=== PATIENT | male | born 1945 | race Caucasian/White ===

== ENCOUNTER → 2016-12-01 | Outpatient (REF) | payer MEDICARE, OTHER ==
[2016-12-01 13:10] LABS: MEAN CORPUSCULAR HGB CONC 33.7 g/dl (32.0-36.5); RED CELL DISTRIBUTION WIDTH 13.6 % (11.5-14.5)
[2016-12-01 13:48] LABS: VITAMIN B12 LEVEL 851 PG/ML (247-911)
[2016-12-01 13:49] LABS: ALBUMIN 3.6 GM/DL (3.2-5.2); ALKALINE PHOSPHATASE 82 U/L (45-117); ALT/SGPT 38 U/L (12-78); ANION GAP 8 MEQ/L (8-16); AST/SGOT 34 U/L (15-37); BILIRUBIN,TOTAL 0.5 MG/DL (0.2-1.0); BLOOD UREA NITROGEN 18 MG/DL (7-18); CALCIUM LEVEL 9.3 MG/DL (8.8-10.2); CARBON DIOXIDE LEVEL 28 MEQ/L (21-32); CHLORIDE LEVEL 105 MEQ/L (98-107); CREATININE FOR GFR 1.21 MG/DL (0.70-1.30); FREE T4 1.04 NG/DL (0.76-1.46); GLOMERULAR FILTRATION RATE > 60.0 (>42); GLUCOSE, FASTING 85 MG/DL (83-110); POTASSIUM SERUM 4.4 MEQ/L (3.5-5.1); SODIUM LEVEL 141 MEQ/L (136-145); TOTAL PROTEIN 7.6 GM/DL (6.4-8.2)
[2016-12-01 14:20] LABS: BASOPHILS 1 % (0-4); EOSINOPHILS 7 % (0-5)
[2016-12-02 10:50] LABS: ALBUMIN 4.07 GM/DL (3.29-5.55); ALBUMIN % 53.6 % (55.8-66.1); GAMMA GLOBULIN % 20.7 % (11.1-18.8)
[2016-12-02 11:00] LABS: MAGNESIUM LEVEL 2.2 MG/DL (1.8-2.4)
[2016-12-02 11:31] LABS: PRETREATED FOLATE FOR RBCFOL 11.8 NG/ML
[2016-12-02 11:36] LABS: RETIC HEMOGLOBIN CONTENT CHr 32.3 PG (24-36); RETICULOCYTE % ADVIA2120 2.1 % (0.5-1.5)
== END ==
LOC: M SFHCPLAZ 10:51
PROVIDERS: ATTEND Family Medicine
DX: E53.8 Deficiency of other specified B group vitamins (principal); N18.3 Chronic kidney disease, stage 3 (moderate); E03.9 Hypothyroidism, unspecified; Z12.5 Encounter for screening for malignant neoplasm of prostate; E55.9 Vitamin D deficiency, unspecified; J44.9 Chronic obstructive pulmonary disease, unspecified; Z79.82 Long term (current) use of aspirin; Z79.899 Other long term (current) drug therapy
CPT/HCPCS: 36415; 80053; 82306; 82607; 82728; 82747; 83519; 83550; 83735; 83970; 84165; 84439; 84443; 85007; 85027; 85046; 86140; G0103; G0463

== ENCOUNTER → 2016-12-05 | Outpatient (CLI) | payer MEDICARE, OTHER ==
--- NOTE | 2016-12-05 12:37 | REP ---
TWO-VIEW CHEST: REASON: Fatigue. COMPARISON: Multiple, the latest 04/15/2010. FINDINGS: The superior mediastinal structures are midline. The cardiac silhouette is unremarkable in size, shape, and position. The diaphragmatic surfaces of the lungs are regular, and the costophrenic angles are clear. The pulmonary ervin are clear. The imaged osseous structures are intact. IMPRESSION: There is no acute cardiopulmonary disease. No change from the prior exam. Signed by Temo Henderson DO 12/05/2016 02:46 P
== END ==
LOC: M WUC 11:04
PROVIDERS: ATTEND Family Medicine
DX: R53.83 Other fatigue (principal)

== ENCOUNTER → 2016-12-16 | Outpatient (CLI) | payer MEDICARE, BC, OTHER ==
--- NOTE | 2016-12-16 15:08 | REP ---
Whole body radionuclide bone scan: History: Hypercalcemia. No comparison bone scan. Technique: 20.7 mCi of technetium 99m MDP is injected and standard whole body bone scan imaging is acquired. Scintigraphic findings: There is a normal distribution of skeletal tracer with uptake in bilateral kidneys and in the urinary bladder. There is arthritic uptake involving both acromioclavicular joints, both knees, right greater than left, and the right first MTP joint in the foot. There are mild degenerative uptake changes in the cervical spine. There is no evidence to suggest skeletal metastatic disease. Impression: Mild arthritic pattern as above. No evidence of bony metastatic disease or destructive lesion. Signed by Mika Ragland MD 12/16/2016 05:08 P
== END ==
LOC: M RAD 09:36
PROVIDERS: ATTEND Family Medicine
DX: E83.52 Hypercalcemia (principal)
CPT/HCPCS: 78306; A9503

== ENCOUNTER → 2017-01-02 | Outpatient (REF) | payer MEDICARE, OTHER, BC ==
[~2017-01-02] MED LIST: B121000T PO; COMBAER6 INH; FERR325T3 PO; MULT1CHW39 PO; OMEP40CA2 PO
[2017-01-02 10:39] LABS: MEAN CORPUSCULAR HEMOGLOBIN 31.6 pg (27.0-33.0); MEAN CORPUSCULAR HGB CONC 33.6 g/dl (32.0-36.5); MEAN CORPUSCULAR VOLUME 93.8 fl (80.0-96.0); RED CELL DISTRIBUTION WIDTH 13.9 % (11.5-14.5); WHITE BLOOD COUNT 6.3 K/mm3 (4.0-10.0)
[2017-01-02 11:13] LABS: ALBUMIN 3.8 GM/DL (3.2-5.2); ALBUMIN/GLOBULIN RATIO 0.93 (1.00-1.93); BILIRUBIN,TOTAL 0.5 MG/DL (0.2-1.0); CALCIUM LEVEL 9.5 MG/DL (8.8-10.2); CREATININE FOR GFR 1.38 MG/DL (0.70-1.30); GLOMERULAR FILTRATION RATE 54.1 (>42); PERCENT SATURATION 38.6 % (19.7-37.4); POTASSIUM SERUM 4.4 MEQ/L (3.5-5.1); TOTAL PROTEIN 7.9 GM/DL (6.4-8.2)
[2017-01-02 12:07] LABS: EOSINOPHILS 8 % (0-5)
[2017-01-07 00:10] LABS: PTH RELATED PEPTIDE 6.9 pmol/L (.)
== END ==
LOC: M SFHCPLAZ 09:42
PROVIDERS: ATTEND Family Medicine
DX: E21.5 Disorder of parathyroid gland, unspecified (principal); E55.9 Vitamin D deficiency, unspecified; D50.9 Iron deficiency anemia, unspecified; I48.92 Unspecified atrial flutter
CPT/HCPCS: 36415; 80053; 82728; 83519; 83550; 83615; 83625; 85007; 85027; G0463

== ENCOUNTER → 2017-01-06 | Outpatient (CLI) | payer MEDICARE, BC, OTHER ==
[~2017-01-06] MED LIST changes: -B121000T PO; -COMBAER6 INH; -FERR325T3 PO; +ISOVUE-370 76% 100ML VIAL (Q9967) As Ordered ONE; -MULT1CHW39 PO; -OMEP40CA2 PO
--- NOTE | 2017-01-06 16:12 | REP ---
CT NECK WITH CONTRAST: HISTORY: Hypercalcemia. CONTRAST: Isovue-370 100 mL Calcifications are present in the tonsils. This is secondary to previous inflammatory disease. The naso- monica- and hypopharynx, larynx and subglottic trachea otherwise normal in appearance. The salivary and thyroid glands are normal. Small lymph nodes less than 1 cm in size are present in the internal jugular chains, posterior triangles, submandibular and submental areas. Atherosclerotic calcification is present at the right carotid bifurcation. Degenerative change is present in the cervical spine. Scarring is present in the lung apices. Minimal mucosal thickening is present in the ethmoid and right maxillary sinuses. IMPRESSION: There is no neck mass or adenopathy. Signed by Emmanuel London MD 01/06/2017 04:28 P
--- NOTE | 2017-01-06 16:38 | REP ---
CT of the chest with IV contrast: Comparison is the PA and lateral plain film study dated 12/05/2016. The thyroid is incompletely included in the scan. Consider thyroid ultrasound for evaluation of the thyroid. There is a 6 mm nodule posteroinferiorly in the left upper lobe. There are no acute infiltrates or effusions. There is minor atelectasis inferiorly in the right right middle lobe and inferiorly in the lingula. There is no mediastinal or hilar adenopathy. There is no axillary adenopathy. The thoracic aorta is unremarkable. Cardiac size is normal. In the upper abdomen there is hepato steatosis. The gallbladder, pancreas and spleen are unremarkable. There is no adrenal mass. Impression: There is a 6 mm nodule in the left upper lobe as described. There is no adenopathy. This is a category three lung nodule. The probability of malignancy is 1-2%. Recommendation is for a 6-month follow-up CT. Signed by Tony Alvarado MD 01/06/2017 04:30 P
== END ==
LOC: M RAD 13:38
PROVIDERS: ATTEND Family Medicine
DX: E83.52 Hypercalcemia (principal); R91.8 Other nonspecific abnormal finding of lung field
CPT/HCPCS: 70491; 71260; Q9967

== ENCOUNTER → 2017-02-11 | Outpatient (CLI) | payer MEDICARE, BC, OTHER ==
[~2017-02-11] MED LIST changes: +B121000T PO; +COMBAER6 INH; +FERR325T3 PO; -ISOVUE-370 76% 100ML VIAL (Q9967) As Ordered ONE; +MULT1CHW39 PO; +OMEP40CA2 PO
[2017-02-11 20:41] LABS: ALBUMIN 3.8 GM/DL (3.2-5.2); ALBUMIN/GLOBULIN RATIO 0.97 (1.00-1.93); BILIRUBIN,TOTAL 0.5 MG/DL (0.2-1.0); CALCIUM LEVEL 9.1 MG/DL (8.8-10.2); CREATININE FOR GFR 1.42 MG/DL (0.70-1.30); GLOMERULAR FILTRATION RATE 52.3 (>42); POTASSIUM SERUM 4.3 MEQ/L (3.5-5.1); TOTAL PROTEIN 7.7 GM/DL (6.4-8.2)
[2017-02-11 20:56] LABS: MEAN CORPUSCULAR HEMOGLOBIN 33.2 pg (27.0-33.0); MEAN CORPUSCULAR HGB CONC 34.6 g/dl (32.0-36.5); MEAN CORPUSCULAR VOLUME 95.9 fl (80.0-96.0); RED CELL DISTRIBUTION WIDTH 13.8 % (11.5-14.5); WHITE BLOOD COUNT 8.4 K/mm3 (4.0-10.0)
[2017-02-11 21:31] LABS: BASOPHILS 2 % (0-4); EOSINOPHILS 7 % (0-5)
[2017-02-11 21:32] LABS: PLATELET CLUMPS SMALL AMT
[2017-02-15 00:07] LABS: Lyme Disease IgG Ab 18 kDa Ban Absent (.); Lyme Disease IgG Ab 23 kDa Ban Absent (.); Lyme Disease IgG Ab 28 kDa Ban Absent (.); Lyme Disease IgG Ab 30 kDa Ban Absent (.); Lyme Disease IgG Ab 39 kDa Ban Present (.); Lyme Disease IgG Ab 41 kDa Ban Absent (.); Lyme Disease IgG Ab 45 kDa Ban Present (.); Lyme Disease IgG Ab 58 kDa Ban Absent (.); Lyme Disease IgG Ab 66 kDa Ban Absent (.); Lyme Disease IgG Ab 93 kDa Ban Absent (.); Lyme Disease IgG West Blot Int Negative (.); Lyme Disease IgG/IgM Antibodie 1.26 ISR (0.00-0.90); Lyme Disease IgM Ab 23 kDa Ban Present (.); Lyme Disease IgM Ab 39 kDa Ban Absent (.); Lyme Disease IgM Ab 41 kDa Ban Absent (.); Lyme Disease IgM Ab Quantitati 1.35 index (0.00-0.79); Lyme Disease IgM West Blot Int Negative (.)
== END ==
LOC: M WUC 11:16
PROVIDERS: ATTEND Physician Assistant
DX: R21 Rash and other nonspecific skin eruption (principal)

== ENCOUNTER → 2017-02-17 | Outpatient (REF) | payer MEDICARE, BC, OTHER ==
[2017-02-20 00:08] LABS: BABESIOSIS LEVEL IGG <1:10 (Neg:<1:10); BABESIOSIS LEVEL IGM <1:10 (Neg:<1:10)
== END ==
LOC: M SFHCPLAZ 08:58
PROVIDERS: ATTEND Family Medicine
DX: A69.20 Lyme disease, unspecified (principal); D50.9 Iron deficiency anemia, unspecified
CPT/HCPCS: 36415; 86609; 86880; 87798; G0463

== ENCOUNTER 2017-03-18 10:34 | Outpatient (CLI) | payer MEDICARE, BC, OTHER ==
[~2017-03-18] VITALS: Ht 180.3 cm; Wt 90.7 kg
[2017-03-18] MEDS ORDERED: NS 1,000 ML IV ONE (11:00)
[2017-03-18] MEDS ORDERED: PROPOFOL 200 MG/20 ML VIAL As Ordered ONE (12:09)
[2017-03-18] MEDS ORDERED: LIDOCAINE 2% INJ 100 MG/5 ML SDV (FOR ANES.) As Ordered ONE (12:09)
--- NOTE | 2017-03-18 12:26 | ROOR ---
Patient Name: Valentin Jack Procedure Date: 03/18/2017 11:47 AM Date of : 1945 Age: 71 Room: [facility], [facility]IN [facility] Gender: Male Note Status: Finalized Procedure: Total Colonoscopy to Cecum + Cold Snare Polypectomy + Hemoclips Indications: High risk colon cancer surveillance: Personal history of colonic polyps, Last colonoscopy: 2008 Providers: Gregorio Costa MD Referring MD: Ney Medina MD Requesting Provider: Medicines: Monitored Anesthesia Care Complications: No immediate complications. Procedure: Pre-Anesthesia Assessment: - The heart rate, respiratory rate, oxygen saturations, blood pressure, adequacy of pulmonary ventilation, and response to care were monitored throughout the procedure. The Colonoscope was introduced through the anus and advanced to the cecum, identified by appendiceal orifice and ileocecal valve. The colonoscopy was performed without difficulty. The patient tolerated the procedure well. The quality of the bowel preparation was excellent. Findings: The perianal and digital rectal examinations were normal. Non-bleeding internal hemorrhoids were found during retroflexion. The hemorrhoids were small and Grade I (internal hemorrhoids that do not prolapse). Multiple small and large-mouthed diverticula were found in the recto-sigmoid colon, sigmoid colon and descending colon. A medium polyp was found in the transverse colon. The polyp was sessile. The polyp was removed with a cold snare. Resection and retrieval were complete. To prevent bleeding after the polypectomy, one hemostatic clip was successfully placed (MR conditional). There was no bleeding at the end of the procedure. A medium polyp was found at 50 cm proximal to the anus. The polyp was semi-pedunculated. The polyp was removed with a cold snare. Resection and retrieval were complete. To prevent bleeding after the polypectomy, three hemostatic clips were successfully placed (MR conditional). There was no bleeding at the end of the procedure. The exam was otherwise without abnormality on direct and retroflexion views. Impression: - Non-bleeding internal hemorrhoids. - Diverticulosis in the recto-sigmoid colon, in the sigmoid colon and in the descending colon. - One medium polyp in the transverse colon, removed with a cold snare. Resected and retrieved. Clip (MR conditional) was placed. - One medium polyp at 50 cm proximal to the anus, removed with a cold snare. Resected and retrieved. Clips (MR conditional) were placed. - The examination was otherwise normal on direct and retroflexion views. - The exam was otherwise normal to the cecum. Recommendation: - Patient has a contact number available for emergencies. The signs and symptoms of potential delayed complications were discussed with the patient. Return to normal activities tomorrow. Written discharge instructions were provided to the patient. - High fiber diet. - Discharge patient to home. - Continue present medications. - Await pathology results. - Telephone GI clinic for pathology results in 1 week. - Check Portal Online for Path Results.([email or web address]) - Repeat colonoscopy for surveillance based on pathology results. - Return to referring physician. - The findings and recommendations were discussed with the patient's family. Gregorio Costa MD Gregorio Costa MD 03/18/2017 12:26:46 PM This report has been signed electronically. Number of Addenda: 0 Note Initiated On: 03/18/2017 11:47 AM Estimated Blood Loss: Estimated blood loss: none.
[2017-03-18 12:55] VITALS: BP 109/56
== END 2017-03-18 13:30 | disposition home or self-care (01) ==
LOC: M OPP 10:34
PROVIDERS: ATTEND Internal Medicine Gastroenterology
DX: Z12.11 Encounter for screening for malignant neoplasm of colon (principal); D12.3 Benign neoplasm of transverse colon; D12.5 Benign neoplasm of sigmoid colon; K64.0 First degree hemorrhoids; K57.30 Diverticulosis of large intestine without perforation or abscess without bleeding; Z86.010 Personal history of colon polyps; I48.91 Unspecified atrial fibrillation; M19.90 Unspecified osteoarthritis, unspecified site; Z86.79 Personal history of other diseases of the circulatory system; J45.909 Unspecified asthma, uncomplicated; G47.8 Other sleep disorders; G47.30 Sleep apnea, unspecified; R06.83 Snoring; Z87.891 Personal history of nicotine dependence; Z79.899 Other long term (current) drug therapy; Z88.8 Allergy status to other drugs, medicaments and biological substances; Z88.5 Allergy status to narcotic agent; Z88.0 Allergy status to penicillin; Z88.1 Allergy status to other antibiotic agents; Z80.8 Family history of malignant neoplasm of other organs or systems

== ENCOUNTER → 2017-04-09 | Outpatient (REF) | payer MEDICARE, OTHER ==
[2017-04-09 13:33] LABS: ALBUMIN 3.8 GM/DL (3.2-5.2); ALBUMIN/GLOBULIN RATIO 0.97 (1.00-1.93); BILIRUBIN,TOTAL 0.4 MG/DL (0.2-1.0); CALCIUM LEVEL 9.8 MG/DL (8.8-10.2); CREATININE FOR GFR 1.3 MG/DL (0.70-1.30); FREE T4 0.99 NG/DL (0.76-1.46); GLOMERULAR FILTRATION RATE 57.9 (>42); TOTAL PROTEIN 7.7 GM/DL (6.4-8.2)
[2017-04-09 13:51] LABS: BASO % 0.6 % (0.0-1.0); EOS # 0.5 K/mm3 (0.0-0.50); LARGE UNSTAINED CELL # 0.3 K/mm3 (0.0-0.4); LARGE UNSTAINED CELL % 3.9 % (0.0-4.0); LYMPH # 1.9 K/mm3 (1.5-4.5); LYMPH % 28.2 % (24.0-44.0); MEAN CORPUSCULAR HEMOGLOBIN 32.8 pg (27.0-33.0); MEAN CORPUSCULAR HGB CONC 34.6 g/dl (32.0-36.5); MEAN CORPUSCULAR VOLUME 94.8 fl (80.0-96.0); MONO # 0.5 K/mm3 (0.0-0.8); MONO % 7.1 % (0.0-5.0); NEUTROPHILS # 3.6 K/mm3 (1.8-7.7); NEUTROPHILS % 53.2 % (36.0-66.0); PLATELET COUNT, AUTOMATED 213 k/mm3 (150-450); RED CELL DISTRIBUTION WIDTH 13.4 % (11.5-14.5); WHITE BLOOD COUNT 6.7 K/mm3 (4.0-10.0)
== END ==
LOC: M SFHCPLAZ 09:24
PROVIDERS: ATTEND Family Medicine
DX: N18.3 Chronic kidney disease, stage 3 (moderate) (principal); E03.9 Hypothyroidism, unspecified; E55.9 Vitamin D deficiency, unspecified; Z23 Encounter for immunization
CPT/HCPCS: 80053; 82306; 83519; 83970; 84439; 84443; 85025; 90662; G0008

== ENCOUNTER → 2017-12-30 | Outpatient (REF) | payer MEDICARE, OTHER ==
[2017-12-30 12:00] LABS: BASO % 0.4 % (0.0-1.0); EOS # 0.4 10^3/uL (0.0-0.50); EOS % 5.8 % (0.0-3.0); HEMOGLOBIN 14.2 g/dl (13.5-17.5); IMMATURE GRANULOCYTE % 0.4 % (0-3.0); LYMPH # 1.9 10^3/uL (1.5-4.5); LYMPH % 26.2 % (24.0-44.0); MEAN CORPUSCULAR HEMOGLOBIN 32.9 pg (27.0-33.0); MEAN CORPUSCULAR HGB CONC 33.8 g/dl (32.0-36.5); MEAN CORPUSCULAR VOLUME 97.4 fl (80.0-96.0); MONO # 0.8 10^3/uL (0.0-0.8); MONO % 10.4 % (0.0-5.0); NEUTROPHILS # 4.2 10^3/uL (1.8-7.7); NEUTROPHILS % 56.8 % (36.0-66.0); RED BLOOD COUNT 4.31 10^6/uL (4.30-6.10); RED CELL DISTRIBUTION WIDTH 13.1 % (11.5-14.5); RETIC HEMOGLOBIN EQUIVALENT 38.3 pg (24-36); RETICULOCYTE # 62.5 10^9/L (17-77); RETICULOCYTE % 1.5 % (0.5-1.5); WHITE BLOOD COUNT 7.4 10^3/uL (4.0-10.0)
[2017-12-30 12:10] LABS: PLATELET COUNT, AUTOMATED 148 10^3/uL (150-450); POS COUNT POS FLAG
[2017-12-30 12:51] LABS: PTH INTACT 35.2 PG/ML (18.5-88.0); TOTAL 25(OH) VITAMIN D 30.6 NG/ML (30.0-100.0)
[2017-12-30 12:52] LABS: VITAMIN B12 LEVEL 633 PG/ML (247-911)
[2017-12-30 12:53] LABS: ALBUMIN 3.9 GM/DL (3.2-5.2); ALBUMIN/GLOBULIN RATIO 0.95 (1.00-1.93); ALKALINE PHOSPHATASE 109 U/L (45-117); ALT/SGPT 41 U/L (12-78); ANION GAP 8 MEQ/L (8-16); AST/SGOT 32 U/L (7-37); BILIRUBIN,TOTAL 0.5 MG/DL (0.2-1.0); BLOOD UREA NITROGEN 19 MG/DL (7-18); CALCIUM LEVEL 9.4 MG/DL (8.8-10.2); CARBON DIOXIDE LEVEL 26 MEQ/L (21-32); CHLORIDE LEVEL 109 MEQ/L (98-107); CREATININE FOR GFR 1.42 MG/DL (0.70-1.30); FREE T4 1.05 NG/DL (0.76-1.46); GLOMERULAR FILTRATION RATE 52.3 (>42); GLUCOSE, FASTING 88 MG/DL (70-100); POTASSIUM SERUM 4.6 MEQ/L (3.5-5.1); PSA SCREENING 0.16 NG/ML (< 4.0); SODIUM LEVEL 143 MEQ/L (136-145)
[2018-01-01 14:16] LABS: VITAMIN D 1,25 DIHYDROXY 38.7 pg/mL (19.9-79.3)
== END ==
LOC: M SFHCPLAZ 10:05
DX: D50.9 Iron deficiency anemia, unspecified (principal); Z12.5 Encounter for screening for malignant neoplasm of prostate; N18.3 Chronic kidney disease, stage 3 (moderate); E03.9 Hypothyroidism, unspecified; E55.9 Vitamin D deficiency, unspecified; E21.5 Disorder of parathyroid gland, unspecified
CPT/HCPCS: 84443

== ENCOUNTER 2017-12-31 16:36 | Emergency (ER) | payer MEDICARE, BC, OTHER ==
[2017-12-31] MEDS: IPRATROPIUM 0.5MG/ALBUTEROL 2.5MG INH SOL UD 3ML (DUONEB)(J7620) NEB ×2 (16:58→19:01)
[2017-12-31] MEDS: EPINEPHrine INJ 1 MG/ML 1ML AMP IM (17:03)
[2017-12-31] MEDS: methylPREDNISolone INJ 125 MG/2 ML VIAL (J2930) IV (17:04)
[2017-12-31] MEDS: FAMOTIDINE INJ 20MG/2ML VIAL (S0028) IVP (17:04)
[2017-12-31] MEDS: diphenhydrAMINE INJ 50MG/ML VIAL (J1200) IV (17:04)
[2017-12-31 17:19] LABS: ABG BASE EXCESS -2.4 (-2.0-2.0); ABG HCO3 24.3 MEQ/L (22.0-26.0); ABG O2 SATURATION 99.2 % (95.0-99.0); ABG PARTIAL PRESSURE O2 173.2 mmHg (75.0-100.0); ABG STANDARD HCO3 22.5 MEQ/L (22.0-26.0); ABG TOTAL CO2 25.8 MEQ/L (23.0-31.0); ABG pH (ARTERIAL) 7.313 UNITS (7.350-7.450)
[2017-12-31 17:22] LABS: BASO % 0.5 % (0.0-1.0); EOS # 0.5 10^3/uL (0.0-0.50); EOS % 5.7 % (0.0-3.0); HEMATOCRIT 42.8 % (42.0-52.0); HEMOGLOBIN 14.5 g/dl (13.5-17.5); IMMATURE GRANULOCYTE % 0.5 % (0-3.0); LYMPH # 3.5 10^3/uL (1.5-4.5); LYMPH % 39.7 % (24.0-44.0); MEAN CORPUSCULAR HEMOGLOBIN 32.9 pg (27.0-33.0); MEAN CORPUSCULAR HGB CONC 33.9 g/dl (32.0-36.5); MEAN CORPUSCULAR VOLUME 97.1 fl (80.0-96.0); MONO # 0.7 10^3/uL (0.0-0.8); MONO % 8.2 % (0.0-5.0); NEUTROPHILS % 45.4 % (36.0-66.0); PLATELET COUNT, AUTOMATED 198 10^3/uL (150-450); RED BLOOD COUNT 4.41 10^6/uL (4.30-6.10); RED CELL DISTRIBUTION WIDTH 13.1 % (11.5-14.5); WHITE BLOOD COUNT 8.7 10^3/uL (4.0-10.0)
[2017-12-31 17:38] LABS: INR 0.96; PROTHROMBIN TIME 12.9 SECONDS (12.4-14.5)
[2017-12-31 17:39] LABS: PARTIAL THROMBOPLASTIN TIME 35.4 SECONDS (26.8-37.9)
[2017-12-31 17:52] LABS: ALBUMIN 3.8 GM/DL (3.2-5.2); ALBUMIN/GLOBULIN RATIO 0.81 (1.00-1.93); ALKALINE PHOSPHATASE 117 U/L (45-117); ALT/SGPT 52 U/L (12-78); ANION GAP 6 MEQ/L (8-16); AST/SGOT 42 U/L (7-37); BILIRUBIN,DIRECT 0.1 MG/DL (0.0-0.2); BILIRUBIN,TOTAL 0.4 MG/DL (0.2-1.0); BLOOD UREA NITROGEN 15 MG/DL (7-18); CALCIUM LEVEL 8.9 MG/DL (8.8-10.2); CARBON DIOXIDE LEVEL 27 MEQ/L (21-32); CHLORIDE LEVEL 109 MEQ/L (98-107); CPK CREATINE PHOSPHOKINASE 220 U/L (39-308); CREATININE FOR GFR 1.43 MG/DL (0.70-1.30); FREE T4 1.03 NG/DL (0.76-1.46); GLOMERULAR FILTRATION RATE 51.8 (>42); GLUCOSE, FASTING 97 MG/DL (70-100); POTASSIUM SERUM 3.9 MEQ/L (3.5-5.1); SODIUM LEVEL 142 MEQ/L (136-145); TOTAL PROTEIN 8.5 GM/DL (6.4-8.2)
[2017-12-31 17:53] LABS: CK-MB VALUE MASS 3.6 NG/ML (<3.6); MB/CK RELATIVE INDEX 1.63 (< OR =4); TROPONIN I < 0.02 NG/ML (< 0.10)
[2017-12-31 17:54] LABS: NT-PRO BNP 234 PG/ML (<125)
== END 2017-12-31 20:50 | disposition home or self-care (01) ==
LOC: M ED 16:36
DX: T50.8X5A Adverse effect of diagnostic agents, initial encounter (principal); J98.01 Acute bronchospasm; Y92.9 Unspecified place or not applicable; Y93.9 Activity, unspecified; E21.5 Disorder of parathyroid gland, unspecified; R91.1 Solitary pulmonary nodule; I48.92 Unspecified atrial flutter; J45.909 Unspecified asthma, uncomplicated; J44.9 Chronic obstructive pulmonary disease, unspecified; E78.5 Hyperlipidemia, unspecified; G47.30 Sleep apnea, unspecified; K21.9 Gastro-esophageal reflux disease without esophagitis; M19.90 Unspecified osteoarthritis, unspecified site; N18.3 Chronic kidney disease, stage 3 (moderate); G62.9 Polyneuropathy, unspecified; Z87.891 Personal history of nicotine dependence; Z79.899 Other long term (current) drug therapy; Z91.041 Radiographic dye allergy status
CPT/HCPCS: J1200

== ENCOUNTER → 2017-12-31 | Outpatient (CLI) | payer MEDICARE, BC, OTHER ==
[~2017-12-31] MED LIST changes: -B121000T PO; -COMBAER6 INH; -FERR325T3 PO; +ISOVUE-370 76% 100ML VIAL (Q9967) As Ordered; -MULT1CHW39 PO; -OMEP40CA2 PO
== END ==
LOC: M RAD 16:03
DX: E21.5 Disorder of parathyroid gland, unspecified (principal); R91.1 Solitary pulmonary nodule

== ENCOUNTER → 2018-11-25 | Outpatient (CLI) | payer MEDICARE, BC, OTHER ==
[~2018-11-25] MED LIST changes: +B121000T PO; +COMBAER6 INH; +FERR325T3 PO; -ISOVUE-370 76% 100ML VIAL (Q9967) As Ordered; +MULT200T7 PO; +OMEP40CA2 PO
[2018-11-25 19:44] LABS: ALBUMIN 3.7 GM/DL (3.2-5.2); BILIRUBIN,TOTAL 0.7 MG/DL (0.2-1.0); CALCIUM LEVEL 9.4 MG/DL (8.8-10.2); CREATININE FOR GFR 1.72 MG/DL (0.70-1.30); GLOMERULAR FILTRATION RATE 41.8 (>42); POTASSIUM SERUM 4.4 MEQ/L (3.5-5.1)
== END ==
LOC: M WUC 15:43
PROVIDERS: ATTEND Family Medicine
DX: E21.5 Disorder of parathyroid gland, unspecified (principal)

== ENCOUNTER → 2018-12-01 | Outpatient (CLI) | payer MEDICARE, BC, OTHER ==
--- NOTE | 2018-12-01 14:48 | REP ---
REASON: Followup left upper lung 6 mm size nodule seen on the latest prior of 12/31/2017 All priors were reviewed. The mediastinum and pulmonary sanjeev are stable showing no evidence of mass or adenopathy. There are no pleural or pericardial effusions. There is no change in the imaged upper abdomen or imaged osseous structures. Evaluation of the lung ervin shows a 6 mm size nodule seen in the left upper lobe on the latest prior to have gotten smaller today measuring 5 mm. Asymmetric densities, however, persist in that same region. There is a new left upper lobe nodule with irregular margins measuring 1 cm and inferior to the aforementioned in the apical posterior segment of the left upper lobe. There is an incidental unchanged calcified granuloma in the apical posterior segment of the left upper lobe. The lung ervin are hyper-expanded. There is biapical pleuroparenchymal scarring status quo. Early cylindrical bronchiectatic changes are seen bilaterally and particularly in the lung bases. IMPRESSION: 1. Nodule seen previously in the left upper lobe measuring 6 mm and the latest prior examination of 12/31/2017 has gotten smaller now measuring 5 mm. 2. There is a new 1 cm sized nodule in the apical posterior segment of the left upper lobe as described above. 3. Chronic lung field changes with hyperexpansion, pleuroparenchymal scarring, and cylindrical bronchiectasis as described above. 4. The new left upper lobe nodule represents a category 4A lesion according to the revised Fleischner's Society criteria for which a 3-month followup CT scan of the chest is recommended with consideration made for PET at this time since the solid nodule measures over 8 mm. 5. Other findings as described above. Electronically Signed by Temo Henderson DO 12/01/2018 03:27 P
== END ==
LOC: M RAD 12:59
PROVIDERS: ATTEND Family Medicine
DX: R91.1 Solitary pulmonary nodule (principal); R91.8 Other nonspecific abnormal finding of lung field

== ENCOUNTER → 2019-01-11 | Outpatient (CLI) | payer MEDICARE, BC, OTHER ==
[2019-01-11 10:10] LABS: BASO # 0.1 10^3/uL (0.0-0.2); BASO % 0.8 % (0.0-1.0); EOS # 0.4 10^3/uL (0.0-0.50); EOS % 6.7 % (0.0-3.0); HEMATOCRIT 41.8 % (42.0-52.0); HEMOGLOBIN 14.1 g/dl (13.5-17.5); LYMPH % 30.8 % (24.0-44.0); MEAN CORPUSCULAR HEMOGLOBIN 33.3 pg (27.0-33.0); MEAN CORPUSCULAR HGB CONC 33.7 g/dl (32.0-36.5); MEAN CORPUSCULAR VOLUME 98.8 fl (80.0-96.0); MONO # 0.8 10^3/uL (0.0-0.8); MONO % 12.3 % (0.0-5.0); NEUTROPHILS # 3.2 10^3/uL (1.8-7.7); NEUTROPHILS % 48.9 % (36.0-66.0); PLATELET COUNT, AUTOMATED 179 10^3/uL (150-450); RED BLOOD COUNT 4.23 10^6/uL (4.30-6.10); WHITE BLOOD COUNT 6.6 10^3/uL (4.0-10.0)
[2019-01-11 10:44] LABS: ALBUMIN 3.4 GM/DL (3.2-5.2); BILIRUBIN,TOTAL 0.3 MG/DL (0.2-1.0); CALCIUM LEVEL 9.3 MG/DL (8.8-10.2); CHOLESTEROL RISK RATIO 5.484 (<5); CREATININE FOR GFR 1.36 MG/DL (0.70-1.30); FREE T4 0.94 NG/DL (0.76-1.46); GLOMERULAR FILTRATION RATE 54.7 (>42); PERCENT SATURATION 19.9 % (19.7-50.0); POTASSIUM SERUM 4.6 MEQ/L (3.5-5.1); PTH INTACT 43.5 PG/ML (18.5-88.0); THYROID STIMULATING HORMONE 3.82 uIU/ML (0.358-3.740); TOTAL PROTEIN 7.6 GM/DL (6.4-8.2)
[2019-01-11 11:01] LABS: HEMOGLOBIN A1c 5.6 %
== END ==
LOC: M LAB 09:22
PROVIDERS: ATTEND Nurse Practitioner Family
DX: E53.8 Deficiency of other specified B group vitamins (principal); E78.2 Mixed hyperlipidemia; N18.3 Chronic kidney disease, stage 3 (moderate); D50.9 Iron deficiency anemia, unspecified; E03.9 Hypothyroidism, unspecified; E55.9 Vitamin D deficiency, unspecified; R91.1 Solitary pulmonary nodule

== ENCOUNTER → 2019-01-25 | Outpatient (CLI) | payer MEDICARE, BC, OTHER ==
[~2019-01-25] MED LIST changes: -OMEP40CA2 PO; +OMEP40CA97 PO
--- NOTE | 2019-01-25 14:18 | REPVR ---
EXAM: MR Head Without Contrast EXAM DATE/TIME: 01/25/2019 11:21 AM CLINICAL HISTORY: 73 years old, male; Other: Parathesia TECHNIQUE: Imaging protocol: MR of the head without contrast. COMPARISON: Thyroid, ST head+neck US 04/20/2014 6:28 PM FINDINGS: Brain: There are occasional nonspecific foci of high signal abnormality in the gotti radiata and centrum semiovale. These are best seen on the flair images. These foci may represent areas of gliosis, demyelination, and/or chronic ischemic change. Ventricles: Normal. No ventriculomegaly. Bones/joints: Unremarkable. Soft tissues: Normal. Sinuses: There is mild sinus disease. Mastoid air cells: Normal as visualized. No mastoid effusion. Orbits: Unremarkable. IMPRESSION: There are occasional nonspecific foci of high signal abnormality in the gotti radiata and centrum semiovale. These are best seen on the flair images. These foci may represent areas of gliosis, demyelination, and/or chronic ischemic change. Electronically signed by: Yuri Beltrán On 01/25/2019 14:17:45 PM
== END ==
LOC: M RAD 11:19
PROVIDERS: ATTEND Family Medicine
DX: R20.2 Paresthesia of skin (principal)

== ENCOUNTER → 2019-02-21 | Outpatient (CLI) | payer MEDICARE, BC, OTHER ==
[~2019-02-21] MED LIST changes: +OMEP40CA2 PO; -OMEP40CA97 PO
[2019-03-02 00:07] LABS: ACETYLCHOLINE RCPTOR BINDING A < 0.03 nmol/L (0.00-0.24); ACETYLCHOLINE RCPTOR BLOCK AB 23 % (0-25); ACETYLCHOLINE RCPTOR MODULATIN <12 % (0-20)
== END ==
LOC: M LAB 12:17
PROVIDERS: ATTEND Family Medicine
DX: R53.82 Chronic fatigue, unspecified (principal)

== ENCOUNTER → 2019-03-08 | Outpatient (CLI) | payer MEDICARE, BC, OTHER ==
--- NOTE | 2019-03-08 16:40 | REP ---
REASON: Followup lung nodule. All prior exams were reviewed. The latest of which was dated 12/01/2018. The latest prior examination of 12/01/2018 showed a new 1 cm sized nodule in the apical posterior segment of the left upper lobe. Other chronic lung changes were also noted. There is no change in the mediastinum or pulmonary sanjeev. No mass or adenopathy has developed on this limited non-contrast enhanced exam. No significant change is seen involving the imaged upper abdomen or imaged osseous structures. Evaluation of the lung field shows the 1 cm sized slightly irregular nodular density in the apical posterior segment of the left upper lobe to be unchanged. In addition the asymmetric density seen more superiorly in the left upper lobe is also unchanged. There are new abnormal nodules, masses or opacities since the latest prior exam. There are chronic lung field changes status quo. There is biapical pleural parenchymal scarring and evidence of emphysematous change all stable. IMPRESSION:Stale CT examination of the chest compared to 12/01/2018 since the left upper lobe nodular density represented a category 4A lesion which has now shown stability for the 3 month interval required by the revised Fleischner's Society Criteria. That lesion can now be categorized as a category [address] screening is recommended. Electronically Signed by Temo Henderson DO 03/08/2019 05:11 P
== END ==
LOC: M RAD 10:47
PROVIDERS: ATTEND Family Medicine
DX: R91.1 Solitary pulmonary nodule (principal)

== ENCOUNTER → 2019-03-11 | Outpatient (REF) | payer MEDICARE, OTHER ==
[2019-03-11 16:18] LABS: BASO # 0.1 10^3/uL (0.0-0.2); BASO % 0.8 % (0.0-1.0); EOS # 0.4 10^3/uL (0.0-0.50); EOS % 5.3 % (0.0-3.0); HEMATOCRIT 42.9 % (42.0-52.0); HEMOGLOBIN 14.4 g/dl (13.5-17.5); LYMPH # 1.9 10^3/uL (1.5-4.5); LYMPH % 24.1 % (24.0-44.0); MEAN CORPUSCULAR HEMOGLOBIN 32.9 pg (27.0-33.0); MEAN CORPUSCULAR HGB CONC 33.6 g/dl (32.0-36.5); MEAN CORPUSCULAR VOLUME 97.9 fl (80.0-96.0); MONO # 0.7 10^3/uL (0.0-0.8); NEUTROPHILS # 4.8 10^3/uL (1.8-7.7); NEUTROPHILS % 60.3 % (36.0-66.0); PLATELET COUNT, AUTOMATED 195 10^3/uL (150-450); RED BLOOD COUNT 4.38 10^6/uL (4.30-6.10)
[2019-03-11 16:59] LABS: ERYTHROCYTE SEDIMENTATION RATE 69 mm/hr (0-20)
== END ==
LOC: M SFHCPLAZ 13:57
PROVIDERS: ATTEND Family Medicine
DX: R22.31 Localized swelling, mass and lump, right upper limb (principal)
CPT/HCPCS: 36415; 85025; 85652; 86140; G0463

== ENCOUNTER → 2019-03-15 | Outpatient (CLI) | payer MEDICARE, BC, OTHER ==
--- NOTE | 2019-03-15 15:10 | REP ---
ULTRASOUND RIGHT AXILLA: Real-time sonographic of the right axilla is performed in the region of a palpable lump. At that location there is a hyperechoic area measuring 9.0 x 6.0 x 11.0 mm, superficially in a subcutaneous location. There is an anechoic center. The appearance is nonspecific. It could represent a sebaceous cyst, or possibly subcutaneous fat necrosis. Incidental note is made of two adjacent lymph nodes in the right axilla, which morphologically appear normal with a large amount of fat in their hilum. These measure 1.7 x 0.8 x 1.2 cm and 9.0 x 8.0 x 8.0 mm. IMPRESSION: At the site of the palpable lump in a subcutaneous location is a hyperechoic area with anechoic center measuring 9.0 x 6.0 x 11.0 mm. This could represent a sebaceous cyst superficially or possibly focal subcutaneous fat necrosis. There are two adjacent lymph nodes which are normal in size and morphologically appear normal. Electronically Signed by Tony Adair MD 03/16/2019 01:00 P
== END ==
LOC: M RAD 13:14
PROVIDERS: ATTEND Family Medicine
DX: R22.2 Localized swelling, mass and lump, trunk (principal)

== ENCOUNTER → 2019-05-09 | Outpatient (REF) | payer MEDICARE, OTHER ==
[2019-05-09 10:18] LABS: BASO # 0.1 10^3/uL (0.0-0.2); BASO % 0.7 % (0.0-1.0); EOS # 0.5 10^3/uL (0.0-0.5); EOS % 6.3 % (0.0-3.0); HEMATOCRIT 42.1 % (42.0-52.0); HEMOGLOBIN 13.9 g/dl (13.5-17.5); LYMPH # 1.9 10^3/uL (1.5-5.0); LYMPH % 25.7 % (24.0-44.0); MEAN CORPUSCULAR HEMOGLOBIN 32.6 pg (27.0-33.0); MEAN CORPUSCULAR VOLUME 98.6 fl (80.0-96.0); MONO # 0.7 10^3/uL (0.0-0.8); MONO % 9.6 % (0.0-5.0); NEUTROPHILS # 4.2 10^3/uL (1.5-8.5); NEUTROPHILS % 57.3 % (36.0-66.0); PLATELET COUNT, AUTOMATED 182 10^3/uL (150-450); RED BLOOD COUNT 4.27 10^6/uL (4.30-6.10); WHITE BLOOD COUNT 7.3 10^3/uL (4.0-10.0)
[2019-05-09 10:53] LABS: ALBUMIN 3.5 GM/DL (3.2-5.2); BILIRUBIN,TOTAL 0.4 MG/DL (0.2-1.0); CALCIUM LEVEL 9.7 MG/DL (8.8-10.2); CREATININE FOR GFR 1.51 MG/DL (0.70-1.30); FREE T4 0.97 NG/DL (0.76-1.46); GLOMERULAR FILTRATION RATE 48.5 (>42); POTASSIUM SERUM 4.6 MEQ/L (3.5-5.1); THYROID STIMULATING HORMONE 4.31 uIU/ML (0.358-3.740); TOTAL 25(OH) VITAMIN D 32.6 NG/ML (30.0-100.0); TOTAL PROTEIN 7.6 GM/DL (6.4-8.2)
== END ==
LOC: M SFHCPLAZ 08:31
PROVIDERS: ATTEND Family Medicine
DX: Z12.5 Encounter for screening for malignant neoplasm of prostate (principal); E03.9 Hypothyroidism, unspecified; N18.3 Chronic kidney disease, stage 3 (moderate); E21.5 Disorder of parathyroid gland, unspecified
CPT/HCPCS: 36415; 80053; 82306; 83519; 83883; 83970; 84439; 84443; 85025; G0103

== ENCOUNTER → 2020-01-23 | Outpatient (CLI) | payer MEDICARE, BC, OTHER ==
[~2020-01-23] MED LIST changes: -OMEP40CA2 PO; +OMEP40CA97 PO
--- NOTE | 2020-01-23 11:39 | REP ---
Clinical: Symptoms related to atherosclerotic disease and intermittent claudication. Technique: Real time adair scale and color Doppler evaluation of the bilateral lower extremity arterial vasculature using linear high frequency transducer. Findings: Adair scale and color images demonstrate scattered bilateral mild atheromatous plaquing. There is mild stenosis at the origin of the right profunda femoris artery. No further areas of stenosis or occlusion are identified. Biphasic wave patterns noted throughout the right lower extremity along with primarily triphasic wave patterns through the left lower extremity except for noted biphasic changes at the anterior tibial artery and distal posterior tibial artery. Peak systolic velocities (cm/sec) RIGHT LEFT Common femoral artery 125.1 146.3 Profunda femoris 256.0 162.9 SFA (proximal) 106.2 73.1 SFA (mid) 109.9 101.9 SFA (distal) 82.8 105.3 Popliteal artery 75.0 70.3 CARRIE (prox.) 38.5 106.6 Tibioperoneal trunk 89.4 90.2 PNP (prox.) 53.3 94.7 PNP (distal) 67.3 74.5 CARRIE (distal) 33.1 31.0 Impression: Atheromatous changes as described above. Mild stenosis at the right profunda femoris artery. No further areas of stenosis or occlusion noted. Electronically Signed by Leandro Gil MD 01/23/2020 11:31 A
== END ==
LOC: M RAD 09:48
PROVIDERS: ATTEND Family Medicine
DX: I70.213 Atherosclerosis of native arteries of extremities with intermittent claudication, bilateral legs (principal); I77.1 Stricture of artery

== ENCOUNTER → 2020-04-17 | Outpatient (CLI) | payer MEDICARE, BC, OTHER ==
[2020-04-17 13:52] LABS: BASO # 0.1 10^3/uL (0.0-0.2); BASO % 0.7 % (0.0-1.0); EOS # 0.5 10^3/uL (0.0-0.5); EOS % 5.4 % (0.0-3.0); HEMATOCRIT 44.9 % (42.0-52.0); HEMOGLOBIN 14.6 g/dl (13.5-17.5); LYMPH # 2.5 10^3/uL (1.5-5.0); LYMPH % 30.4 % (24.0-44.0); MEAN CORPUSCULAR HEMOGLOBIN 32.7 pg (27.0-33.0); MEAN CORPUSCULAR HGB CONC 32.5 g/dl (32.0-36.5); MEAN CORPUSCULAR VOLUME 100.4 fl (80.0-96.0); MONO # 0.9 10^3/uL (0.0-0.8); MONO % 10.5 % (0.0-5.0); NEUTROPHILS # 4.4 10^3/uL (1.5-8.5); NEUTROPHILS % 52.6 % (36.0-66.0); PLATELET COUNT, AUTOMATED 203 10^3/uL (150-450); RED BLOOD COUNT 4.47 10^6/uL (4.30-6.10); WHITE BLOOD COUNT 8.3 10^3/uL (4.0-10.0)
[2020-04-17 14:30] LABS: ALBUMIN 3.9 GM/DL (3.2-5.2); BILIRUBIN,TOTAL 0.3 MG/DL (0.2-1.0); CHOLESTEROL RISK RATIO 5.054 (<5); CREATININE FOR GFR 1.59 MG/DL (0.70-1.30); GLOMERULAR FILTRATION RATE 45.5 (>42); POTASSIUM SERUM 4.8 MEQ/L (3.5-5.1); PTH INTACT 31.8 PG/ML (18.5-88.0); THYROID STIMULATING HORMONE 2.87 uIU/ML (0.358-3.740); TOTAL PROTEIN 8.1 GM/DL (6.4-8.2)
[2020-04-17 14:58] LABS: TOTAL 25(OH) VITAMIN D 38.4 NG/ML (30.0-100.0)
== END ==
LOC: M PLALAB 10:22
PROVIDERS: ATTEND Family Medicine
DX: D50.9 Iron deficiency anemia, unspecified (principal); E55.9 Vitamin D deficiency, unspecified; E78.2 Mixed hyperlipidemia; D75.89 Other specified diseases of blood and blood-forming organs; E21.5 Disorder of parathyroid gland, unspecified
CPT/HCPCS: 36415; 80053; 80061; 82306; 82728; 83970; 84439; 84443; 85025; 85046; G0103

== ENCOUNTER → 2020-04-23 | Outpatient (CLI) | payer MEDICARE, BC, OTHER ==
--- NOTE | 2020-05-02 16:24 | REP ---
CT CHEST WITHOUT CONTRAST HISTORY: Solitary pulmonary nodule. COMPARISON: Made with prior chest CTs, the most recent of which is from 03/08/2019 and the most remote 01/06/2017. CT FINDINGS: There is no evidence of pleural or pericardial effusion. Normal adrenal glands are seen. The visualized upper abdominal structures are unremarkable. There is dense calcification along the course of the left coronary artery. Stable normal size precarinal lymph nodes are seen. No hilar or mediastinal mass or adenopathy has developed. No new infiltrate is seen. There is mild biapical pleural parenchymal scarring. There is a 7 mm noncalcified pulmonary nodule in the left upper lobe projecting on Page 41 of 116 in Series 201 of todays study. This is unchanged from the most recent prior study of 03/08/2019. It appears slightly larger than on the 2017 study. There is an adjacent now calcified granulomatous nodule. Superior to this in the peribronchovascular region of the left upper lobe, there is an area of fibrosis and slight peribronchial thickening, which is unchanged from the 2017 study. There is a second calcified granulomatous nodule a little lower in the left upper lobe. No new infiltrate or new pulmonary nodule is appreciated. There are emphysematous changes in the upper lobes as before. No bony lesion is seen. IMPRESSION: 7 mm left upper lobe nodule unchanged since the 03/08/2019 prior study. Continued follow-up is advised 6-9 months. MTDD
== END ==
LOC: M RAD 10:09
PROVIDERS: ATTEND Family Medicine
DX: R91.1 Solitary pulmonary nodule (principal)

== ENCOUNTER → 2020-12-10 | Outpatient (REF) | payer MEDICARE, OTHER ==
[2020-12-10 13:14] LABS: BASO # 0.1 10^3/uL (0.0-0.2); BASO % 0.9 % (0.0-1.0); EOS # 0.4 10^3/uL (0.0-0.5); EOS % 5.6 % (0.0-3.0); HEMATOCRIT 41.4 % (42.0-52.0); HEMOGLOBIN 14.1 g/dl (13.5-17.5); LYMPH # 2.4 10^3/uL (1.5-5.0); LYMPH % 30.8 % (24.0-44.0); MEAN CORPUSCULAR HEMOGLOBIN 33.9 pg (27.0-33.0); MEAN CORPUSCULAR HGB CONC 34.1 g/dl (32.0-36.5); MEAN CORPUSCULAR VOLUME 99.5 fl (80.0-96.0); MONO # 0.8 10^3/uL (0.0-0.8); NEUTROPHILS # 4.1 10^3/uL (1.5-8.5); NEUTROPHILS % 52.2 % (36.0-66.0); PLATELET COUNT, AUTOMATED 200 10^3/uL (150-450); RED BLOOD COUNT 4.16 10^6/uL (4.30-6.10); WHITE BLOOD COUNT 7.9 10^3/uL (4.0-10.0)
[2020-12-10 13:45] LABS: HEMOGLOBIN A1c 5.5 %
[2020-12-10 13:51] LABS: ALBUMIN 3.8 GM/DL (3.2-5.2); BILIRUBIN,TOTAL 0.5 MG/DL (0.2-1.0); CALCIUM LEVEL 11.2 MG/DL (8.8-10.2); CHOLESTEROL RISK RATIO 5.473 (<5); CREATININE FOR GFR 1.77 MG/DL (0.70-1.30); GLOMERULAR FILTRATION RATE 40.2 (>42); POTASSIUM SERUM 5.2 MEQ/L (3.5-5.1); PTH INTACT 9.7 PG/ML (18.5-88.0); THYROID STIMULATING HORMONE 2.87 uIU/ML (0.358-3.740); TOTAL 25(OH) VITAMIN D 36.7 NG/ML (30.0-100.0); TOTAL PROTEIN 7.7 GM/DL (6.4-8.2)
[2020-12-10 13:59] LABS: MAU/CREAT RATIO 11.1 MCG/MG (0.0-30.0)
== END ==
LOC: M SFHCPLAZ 11:35
PROVIDERS: ATTEND Family Medicine
DX: E03.9 Hypothyroidism, unspecified (principal); E55.9 Vitamin D deficiency, unspecified; E53.8 Deficiency of other specified B group vitamins; N18.30 Chronic kidney disease, stage 3 unspecified; Z12.5 Encounter for screening for malignant neoplasm of prostate; F17.200 Nicotine dependence, unspecified, uncomplicated; E21.5 Disorder of parathyroid gland, unspecified; Z79.899 Other long term (current) drug therapy
CPT/HCPCS: 36415; 80053; 80061; 82043; 82306; 82607; 82728; 83036; 83519; 83525; 83970; 84439; 84443; 85025; G0103

== ENCOUNTER → 2020-12-17 | Outpatient (REF) | payer MEDICARE, OTHER ==
[2020-12-17 15:40] LABS: TOTAL PROTEIN,RANDOM URINE 24.8 MG/DL (0.0-12.0)
[2020-12-17 15:46] LABS: ALBUMIN 3.6 GM/DL (3.2-5.2); BLOOD UREA NITROGEN 22 MG/DL (7-18); CALCIUM LEVEL 8.9 MG/DL (8.8-10.2); CARBON DIOXIDE LEVEL 28 MEQ/L (21-32); CHLORIDE LEVEL 108 MEQ/L (98-107); CREATININE FOR GFR 1.44 MG/DL (0.70-1.30); GLOMERULAR FILTRATION RATE 51.1 (>42); GLUCOSE, FASTING 92 MG/DL (70-100); PHOSPHORUS LEVEL 3.1 MG/DL (2.5-4.9); POTASSIUM SERUM 4.7 MEQ/L (3.5-5.1); SODIUM LEVEL 141 MEQ/L (136-145); TOTAL PROTEIN 7.6 GM/DL (6.4-8.2)
== END ==
LOC: M SFHCPLAZ 12:22
PROVIDERS: ATTEND Family Medicine
DX: E21.5 Disorder of parathyroid gland, unspecified (principal); Z12.5 Encounter for screening for malignant neoplasm of prostate
CPT/HCPCS: 36415; 80069; 82570; 84156; 84165; 86335; G0103

== ENCOUNTER → 2020-12-22 | Outpatient (CLI) | payer MEDICARE, BC, OTHER ==
--- NOTE | 2020-12-22 14:59 | REP ---
INDICATION: LUNG NODULE COMPARISON: Multiple examinations dating through 12/01/2018 TECHNIQUE: Axial noncontrast images from the thoracic inlet to the upper abdomen with coronal and sagittal reformations. This CT examination was performed using the following dose reduction techniques: Automated exposure control, adjustment of mA and/or kv according to the patient's size, and use of iterative reconstruction technique. FINDINGS: Chronic biapical scarring as well as non solid areas of density in the left mid lung zone and few scattered solid nodules in the left upper lobe along with emphysematous changes, mild bronchiectasis, and minimal right basilar chronic changes remain essentially stable through 2019. No new acute consolidation, significant nodule or mass lesion. No effusion. No pneumothorax. Musculoskeletal structures are intact. IMPRESSION: Chronic stable changes when compared through 12/01/2018. No acute mediastinal or pleuroparenchymal process appreciated. <Electronically signed by Leandro Gil > 12/22/20 [id number]
== END ==
LOC: M RAD 13:55
PROVIDERS: ATTEND Family Medicine
DX: R91.1 Solitary pulmonary nodule (principal)

== ENCOUNTER → 2021-01-02 | Outpatient (CLI) | payer MEDICARE, BC, OTHER ==
--- NOTE | 2021-01-02 09:47 | REPVR ---
PROCEDURE INFORMATION: Exam: MR Lumbar Spine Without Contrast Exam date and time: 01/02/2021 8:56 AM Age: 75 years old Clinical indication: Low back pain; Additional info: Lumbar spondylosis TECHNIQUE: Imaging protocol: Multiplanar magnetic resonance images of the lumbar spine without intravenous contrast. COMPARISON: PT PET/CT Skull/mid thigh 12/14/2018 2:58 PM FINDINGS: Vertebrae: There is straightening of the lumbar spine which could be secondary to positioning or muscle spasm. There is mild degenerative retrolisthesis of L2 over L3. Otherwise,The lumbar vertebral bodies are normal in height,signal intensity and alignment.No acute fracture or dislocation is seen. Spinal epidural space: There is no evidence of epidural masses or hemorrhage. Spinal cord: The conus medullaris is normal. L1-L2: Moderately reduced in height and T2 signal indicating degeneration. Small diffuse posterior herniation. Moderate facet arthropathy.There is thickening of the ligamentum flavum.There is moderate spinal canal stenosis, with an AP canal dimension of 8 mm. There is compression on the thecal sac and crowding of the cauda equina nerve roots at this level.There is moderate bilateral foraminal stenosis. L2-L3: Markedly reduced in height and T2 signal indicating degeneration. Mild degenerative endplate changes. Small diffuse posterior herniation. Moderate facet arthropathy.There is mild spinal canal narrowing, with an AP canal dimension of 10 mm. There is moderate bilateral foraminal stenosis. L3-L4: Markedly reduced in height and T2 signal indicating degeneration. Small diffuse posterior herniation, asymmetric towards the right. Moderate facet arthropathy.There is mild spinal canal narrowing, with an AP canal dimension of 10 mm. There is mild left foraminal stenosis. There is severe right foraminal stenosis. There is compression on the right exiting nerve root. L4-L5: Markedly reduced in height and T2 signal indicating degeneration. Moderate diffuse posterior herniation with a superiorly extruded disc fragment. Moderate facet arthropathy.There is thickening of the ligamentum flavum.There is moderate spinal canal stenosis, with an AP canal dimension of 8 mm. There is moderate bilateral foraminal stenosis. L5-S1: Moderately reduced in height and T2 signal indicating degeneration. Small diffuse posterior herniation. Mild facet arthropathy.There is no evidence of spinal canal narrowing. There is mild bilateral foraminal stenosis. Soft tissues: The prevertebral soft tissues appear normal. IMPRESSION: MRI of the lumbar spine reveals multilevel degenerative spondylitic changes and degenerative disc disease as described above. Electronically signed by: Krishan Irizarry On 01/02/2021 09:46:50 AM
== END ==
LOC: M PLARAD 08:05
PROVIDERS: ATTEND Family Medicine
DX: M47.816 Spondylosis without myelopathy or radiculopathy, lumbar region (principal); N18.30 Chronic kidney disease, stage 3 unspecified

== ENCOUNTER → 2021-01-04 | Outpatient (CLI) | payer MEDICARE, BC, OTHER ==
[~2021-01-04] MED LIST changes: +OMEP40CA4 PO; -OMEP40CA97 PO
--- NOTE | 2021-01-04 13:41 | REP ---
INDICATION: CKD STAGE 3/ MRI ALSO. COMPARISON: None. TECHNIQUE: Real-time sonographic evaluation of the kidneys is performed. Duplex Doppler evaluation of renal arteries performed. FINDINGS: Renal cortical echogenicity pattern is normal bilaterally and contours are smooth. There is no hydronephrosis bilaterally. There is a cyst of the mid right kidney 1.5 cm in diameter. The right kidney measures 10.2 x 5.2 x 4.2 cm. Left renal dimensions are 10.4 x 4.4 x 5.4 cm. Urinary bladder is not well distended. Ureteral jets could not be seen in the urinary bladder with Doppler color evaluation. Duplex Doppler evaluation of renal arteries performed bilaterally. The peak systolic velocity of the abdominal aorta at the level of the renal arteries is 81.7 centimeters/second. The peak systolic velocity of the main right renal artery is 120 centimeter/second, renal to aortic ratio 1.47. resistive indices of the right kidney range between 0.73 and 0.81. Acceleration times are in the range of 0.036. Peak systolic velocity of the main left renal artery is 129 centimeter/second. Renal to aortic ratio 1.58. Resistive indices left kidney range between 0.75 and 0.82. Acceleration times range between 0.044 and 0.048. IMPRESSION: No compelling duplex Doppler sonographic evidence of significant renal artery stenosis bilaterally. <Electronically signed by Tony Adair > 01/04/21 [id number]
== END ==
LOC: M RAD 09:10
PROVIDERS: ATTEND Family Medicine
DX: N18.30 Chronic kidney disease, stage 3 unspecified (principal); M47.816 Spondylosis without myelopathy or radiculopathy, lumbar region; N28.1 Cyst of kidney, acquired; R09.89 Other specified symptoms and signs involving the circulatory and respiratory systems

== ENCOUNTER 2021-01-24 14:07 | Observation (INO) | payer MEDICARE, BC, OTHER ==
[~2021-01-24] VITALS: Ht 180.3 cm; Wt 91.6 kg
[2021-01-24] MEDS ORDERED: OMEP-221 (14:16)
[2021-01-24] MEDS ORDERED: ROSU10TA6 (14:16)
--- NOTE | 2021-01-24 14:45 | REP ---
INDICATION: DYSPNEA/COUGH. COMPARISON: 12/31/2017 the latest prior also portable TECHNIQUE: Portable FINDINGS: The technique utilized in obtaining the radiograph has magnified the cardiac silhouette and accentuated the interstitial markings. The superior mediastinal structures are midline. The cardiac silhouette is unremarkable in size, shape, and position. The diaphragmatic surfaces of the lungs are regular, and the costophrenic angles are clear. The pulmonary ervin are unchanged. No acute patchy parenchymal opacities or pleural effusions have developed.. The imaged osseous structures are intact. IMPRESSION: There is no acute cardiopulmonary disease. <Electronically signed by Temo Henderson > 01/24/21 [id number]
[2021-01-24 14:48] LABS: VENOUS BASE EXCESS 2.2 (-2.0-2.0); VENOUS O2 SATURATION 48.4 % (60.0-80.0); VENOUS PARTIAL PRESSURE CO2 47.6 mmHg (38.0-50.0); VENOUS PARTIAL PRESSURE O2 25.6 mmHg (30.0-50.0); VENOUS PH 7.387 UNITS (7.330-7.430); VENOUS STANDARD HCO3 25.2 MEQ/L; VENOUS TOTAL CO2 29.4 MEQ/L (24.0-28.0)
[2021-01-24 14:50] LABS: HEMATOCRIT 40.7 % (42.0-52.0); HEMOGLOBIN 13.8 g/dl (13.5-17.5); MEAN CORPUSCULAR HEMOGLOBIN 32.5 pg (27.0-33.0); MEAN CORPUSCULAR HGB CONC 33.9 g/dl (32.0-36.5); MEAN CORPUSCULAR VOLUME 95.8 fl (80.0-96.0); PLATELET COUNT, AUTOMATED 101 10^3/uL (150-450); RED BLOOD COUNT 4.25 10^6/uL (4.30-6.10); WHITE BLOOD COUNT 8.2 10^3/uL (4.0-10.0)
[2021-01-24] MEDS ORDERED: ACETAMINOPHEN 500 MG TAB PO ONE (15:05)
[2021-01-24] MEDS ORDERED: NS 1,000 ML IV ONE ×3 (15:05→23:40)
[2021-01-24] MEDS ORDERED: ONDANSETRON 4MG/2ML VIAL IV ONE (15:05)
[2021-01-24 15:17] LABS: ALBUMIN 3.2 GM/DL (3.2-5.2); ALT/SGPT 50 U/L (12-78); BILIRUBIN,DIRECT 0.3 MG/DL (0.0-0.2); BILIRUBIN,TOTAL 0.8 MG/DL (0.2-1.0); CPK CREATINE PHOSPHOKINASE 43 U/L (39-308); MB/CK RELATIVE INDEX 2.33 (< OR =4); NT-PRO BNP 506 PG/ML (<450); THYROXINE (T4) 9.4 UG/DL (4.5-12.0); TOTAL PROTEIN 7.1 GM/DL (6.4-8.2); TROPONIN I < 0.02 NG/ML (< 0.10)
[2021-01-24 15:26] LABS: ATYPICAL LYMPH 2 % (0-5); EOSINOPHILS 4 % (0-3); LYMPHOCYTES 23 % (16-44); MONOCYTES 4 % (0-5); NEUTROPHILS 67 % (28-66)
[2021-01-24 15:27] LABS: PLATELET ESTIMATE DECREASED (NORMAL)
--- NOTE | 2021-01-24 18:06 | ECGEPIP ---
[facility] - ED Test Date: 2021-01-24 Pat Name: DONALD MONTGOMERY Department: Room: - Gender: Male [facility] Director: FLORI : 1945 Requested By: Nadir Lau Order Number: [id number] Reading MD: Sharri Gifford Measurements Intervals [place] Rate: 86 P: 80 RI: 136 QRS: -18 QRSD: 78 T: 67 QT: 332 QTc: 397 Interpretive Statements Normal sinus rhythm Cannot rule out Inferior infarct , age undetermined low voltage limb similar 12/31/17 Electronically Signed on 01-24-2021 18:05:52 EDT by Sharri Gifford
--- NOTE | 2021-01-24 21:09 | REPVR ---
PROCEDURE INFORMATION: Exam: CT Abdomen And Pelvis Without Contrast Exam date and time: 01/24/2021 6:56 PM Age: 75 years old Clinical indication: Fever and nausea; Additional info: Fever/nausea TECHNIQUE: Imaging protocol: Computed tomography of the abdomen and pelvis without contrast. Radiation optimization: All CT scans at this facility use at least one of these dose optimization techniques: automated exposure control; mA and/or kV adjustment per patient size (includes targeted exams where dose is matched to clinical indication); or iterative reconstruction. COMPARISON: PT PET/CT Skull/mid thigh 12/14/2018 2:58 PM FINDINGS: Limitations: Absence of intravenous contrast limits evaluation of vascular and visceral structures. Lungs: The lung bases are unremarkable. Liver: There are no focal liver lesions. Gallbladder and bile ducts: The gallbladder is unremarkable. Pancreas: The pancreas is normal. Spleen: Borderline splenomegaly. Adrenal glands: The adrenal glands are unremarkable. Kidneys and ureters: No hydronephrosis or renal calculi. Stomach and bowel: There is no evidence of intestinal obstruction. Colonic diverticulosis without CT evidence of acute diverticulitis. Appendix: The appendix is unremarkable. Intraperitoneal space: Unremarkable. No free air. No significant fluid collection. Vasculature: There is no evidence of an infrarenal abdominal aortic aneurysm. There is moderate atherosclerotic calcification. Lymph nodes: Unremarkable. No enlarged lymph nodes. Urinary bladder: The bladder is unremarkable. Reproductive: Unremarkable as visualized. Bones/joints: Skeletal degeneration with anterior fusion of the sacroiliac joints. Soft tissues: There is a fat-containing umbilical hernia. Probable prior hernia repair in the midline just above the level of the symphysis pubis. IMPRESSION: No acute findings on this noncontrast examination. Electronically signed by: Audrey Beaver On 01/24/2021 21:09:07 PM
[2021-01-24] MEDS ORDERED: MOM 30ML SUSPENSION UDC PO PRN (22:10)
[2021-01-24] MEDS ORDERED: PIPERACILLIN/TAZOBACTAM SOD 4.5 GM in D5W MINI-BAG PLUS 50 ML IV ONE (22:10)
[2021-01-24] MEDS ORDERED: MAALOX 30 ML SUSP *UDC PO PRN (22:10)
[2021-01-24] MEDS ORDERED: MAGN400T3 PO (22:38)
[2021-01-24] MEDS ORDERED: CYAN100050 PO (22:38)
[2021-01-24] MEDS ORDERED: ASPI-161 PO (22:38)
[2021-01-24] MEDS ORDERED: EPIP0.3I2 IM (22:38)
[2021-01-24] MEDS ORDERED: NIAC500T93 PO (22:38)
[2021-01-24] MEDS ORDERED: POTA99TA14 PO (22:38)
[2021-01-24] MEDS ORDERED: OMEP-221 PO (22:38)
[2021-01-24] MEDS ORDERED: D31000TA2 PO (22:38)
[2021-01-24] MEDS ORDERED: ROSU10TA6 PO (22:38)
[2021-01-24] MEDS ORDERED: VITMTA PO (22:38)
--- NOTE | 2021-01-24 23:22 | REPVR ---
PROCEDURE INFORMATION: Exam: CT Head Without Contrast Exam date and time: 01/24/2021 10:22 PM Age: 75 years old Clinical indication: Altered mental status/memory loss and fever; Confusion or disorientation; Additional info: Fever of unknown origin with somnolence and confusion TECHNIQUE: Imaging protocol: Computed tomography of the head without contrast. Radiation optimization: All CT scans at this facility use at least one of these dose optimization techniques: automated exposure control; mA and/or kV adjustment per patient size (includes targeted exams where dose is matched to clinical indication); or iterative reconstruction. COMPARISON: MRI-Brain without Contrast 01/25/2019 11:38 AM FINDINGS: Brain: There is no evidence intracranial bleed. The dailey-white differentiation appears preserved. Cerebral ventricles: Normal ventricles. Paranasal sinuses: Clear paranasal sinuses. Mastoid air cells: Clear mastoid air cells. Vasculature: There is calcification of the carotid siphon bilaterally consistent with atherosclerotic change. Bones/joints: There is no evidence of fracture. Soft tissues: Unremarkable. IMPRESSION: Normal appearing CT scan of the brain. Electronically signed by: Maykel Irizarry On 01/24/2021 23:22:19 PM
[2021-01-24] MEDS ORDERED: VANCOMYCIN HCL 750 MG, VIAL MATE ADAPTER 1 EACH in NS 250 ML IV ONE (23:30)
[2021-01-25] VITALS (7 sets, daily range): BP systolic 87–136; BP diastolic 52–74
[2021-01-25] MEDS: VANCOMYCIN HCL 1,000 MG, VIAL MATE ADAPTER 1 EACH in NS 250 ML IV SCH ×2 (02:23→13:52)
[2021-01-25] MEDS ORDERED: COMBIVENT RESPIMAT 100-20MCG INHALER 4GM INH PRN (05:05)
--- NOTE | 2021-01-25 05:25 | HPEPDOC ---
[facility] Medical History & Physical Date of Admission Jan 24, 2021 Date of Service: Jan 24, 2021 Attending Physician: SPRING COBB MD MPH History and Physical CHIEF COMPLAINT: Fevers HISTORY OF PRESENT ILLNESS: Mr. Jack is a 75 year old generally healthy male who was brought to the ED this evening by his daughter for fevers and chills. Patient states that for the past 2 weeks he has been experiencing what he felt like was a COPD exacerbation and was seen at urgent care as well as by his PCM and was started on a prednisone burst. He felt better while he was on this medication but over the past 2 days he has felt progressively more feverish and had chills. He does state that his initial cough has improved slightly and he is not bringing anything up. His daughter states that he has been sleeping more heavily than normal for the past couple of days. Patient endorsed a slight stomach ache and nausea while in the ED, however currently he denies any abdominal complaints, and other than a mild headache and generalized mild weakness, he feels generally fine, he also denies dysuria. Of note: while in the fast track, patient began to experience episodes of hypotension and confusion that slightly responded to fluid boluses and he was transferred to the more acute side of the ED. ROS: A 10 point ROS was obtained a6nd was unremarkable except for as noted above. PAST MEDICAL PROBLEMS: COPD GERD Cardiac arrhythmia s/p ablation Asthma MATT PAST SURGICAL HISTORY: Hernia repairs Bilateral knee repairs Cardiac ablation MEDICATIONS: See record SOCIAL HISTORY: LIVES: WORK: TOBACCO: ppd, but quit 2 weeks ago ALCOHOL: occasional PHYSICAL EXAMINATION: VITAL SIGNS: Reviewed, see below GENERAL: well appearing older male, lying in bed, NAD HEENT: EOMI, PERRLA, AT/NC NECK: supple, no LAD, no menningismal signs HEART: RRR no M/R/G, radial pulses 2+ LUNGS: CTAB, no W/R/R ABDOMEN: soft, non tender, no distension, active bowel sounds, no hepatomegaly : No CVA tenderness SKIN: No appreciable rashes MSK: no obvious deformities, no low back TTP NEURO: AOx3, strength symmetric throughout PSYCH: euthymic LABS: reviewed RADIOLOGY: CXR: IMPRESSION: There is no acute cardiopulmonary disease. CT ABD/Pelvis: IMPRESSION: No acute findings on this noncontrast examination. Head CT: IMPRESSION: Normal appearing CT scan of the brain. MICROBIOLOGY: Cultures pending ASSESSMENT: Mr. Jack is a 75 year old male presenting with fever of unknown origin and chills with no identifiable cutaneous, pulmonary, urinary, intraabdominal, or DRILLER'S OFFSIDER etiology who has been admitted for management of hypotension and administr ation of abx. PLAN: # fevers: Patient presented with fevers and chills and has had hypotension all of which indicate SIRS criteria and concern for infection however w/u to date has been unremarkable. Lactate has not been elevated, WBC is WNL with no bandemia and UA only showed 6 WBCs. At this time have initiated broad spectrum abx and will continue to closely monitor and provide fluid as needed. Meds: Vancomycin Zosyn Trend CBC Follow cultures # MINE: Patient has new elevation of serum creatinine, his baseline appears to be around 1.5, this is in the setting of multiple episodes of hypotension which were fluid responsive. Will continue to hydrate and monitor with AM BMP Meds: None Daily BMP Fluid resuscitate # Thrombocytopenia: This is a new issue as his prior platelet counts have all been WNL. At this time in the setting of likely infection with fever of unknown source and hypotension, will not obtain hematology referral as thrombocytopenia may be related to acute illness. Meds: None # COPD: Patient has clear lungs on exam though with mildly prolonged expiratory phase. Will encourage pulmonary toilet and ambulation as well as continue medications for COPD/asthma. At this time will not place on steroid as there is no evidence of acute COPD exacerbation and patient is being managed for infection. Meds: Continue inhaler use DISPO: pcu obs DIET: consistent carbohydrate DVT PROPHY: Lovenox DISCHARGE: pending culture results and clinical improvement CONSULTS: physical therapy Vital Signs Vital Signs Date Time Temp Pulse Resp B/P (MAP) Pulse Ox O2 Delivery O2 Flow Rate FiO2 01/25/21 04:49 96.9 60 16 103/53 (70) Room Air 01/25/21 03:00 98 01/25/21 02:01 2.0 Laboratory Data Labs 24H Laboratory Tests 2 01/24/21 14:35: Neutrophils (%) (Auto) , Nucleated Red Blood Cells % (auto) 0.0, Neutrophils 67H, Lymphocytes (Manual) 23, Monocytes (Manual) 4, Eosinophils (Manual) 4H, Atypical Lymphocytes 2, Platelet Estimate DECREASED, Blood Gas Bicarbonate [place] 25.2, Venous Blood pH 7.387, Venous Blood Partial Pressure CO2 47.6, Venous Blood Partial Pressure O2 25.6L, Venous Blood Total Carbon Dioxide 29.4H, Venous Blood HCO3 28.0H, Venous Blood Oxygen Saturation 48.4L, Venous Blood Base Excess 2.2H, Lactic Acid Level 1.9, Total Bilirubin 0.8, Direct Bilirubin 0.3H, Aspartate Amino Transf (AST/SGOT) 39H, Alanine Aminotransferase (ALT/SGPT) 50, Alkaline Phosphatase 67, Total Creatine Kinase 43, Creatine Kinase MB 1.0, Creatine Kinase MB Relative Index 2.33, Troponin I < 0.02, PM-Geu-M-Type Natriuretic Peptide 506H, Total Protein 7.1, Albumin 3.2, Albumin/Globulin Ratio 0.8, Thyroid Stimulating Hormone (TSH) 1.490, Thyroxine (T4) 9.4 01/24/21 14:36: Urine Color YELLOW, Urine Appearance HAZY, Urine pH 5.0, Urine Specific [place] 1.018, Urine Protein NEGATIVE, Urine Glucose (UA) NEGATIVE, Urine Ketones NEGATIVE, Urine Blood NEGATIVE, Urine Nitrite NEGATIVE, Urine Bilirubin NEGATIVE, Urine Urobilinogen 0.2, Urine Leukocyte Esterase NEGATIVE, Urine WBC (Auto) 6H, Urine RBC (Auto) 0, Urine Hyaline Casts (Auto) 0, Urine Bacteria (Auto) NEGATIVE, Urine Squamous Epithelial Cells 0, Urine Mucus (Auto) SMALL, Urine Sperm (Auto) 01/24/21 15:44: POC Glucose (Misc Panel) 90, POC Sodium (Misc Panel) 139, POC Potassium (Misc Panel) 4.1, POC Chloride (Misc Panel) 97L, POC Total CO2 (Misc Panel) 26.0, POC Blood Urea Nitrogen (Misc Panel 33H, POC Ionized Calcium (Misc Panel) 5.2, POC Creatinine (Misc Panel) 1.9H, POC Hematocrit (Misc Panel) 40.0 01/24/21 17:43: POC Total CO2 (Misc Panel) 25.0, POC pH (Misc Panel) 7.431, POC Base Excess (Misc Panel) 0.0, POC Saturated Percent O2 (Misc) 98, POC pO2 (Misc Panel) 95.0, POC pCO2 (Misc Panel) 36.3, POC HCO3 (Misc Panel) 24.2 01/25/21 05:12: CBC/BMP Laboratory Tests 01/24/21 14:35 Microbiology Microbiology 01/24/21 Blood Culture, Received Pending 01/24/21 Respiratory Virus Panel (PCR) (PAMELA) - Final, Complete 01/24/21 Blood Culture, Received Pending Home Medications Scheduled Aspirin (Aspirin EC) 81 Mg Tablet.dr, 81 MG PO DAILY Cholecalciferol (Vitamin D3) (Vitamin D3) 1,000 Unit Tablet, 1,000 UNITS PO 2XW TAKES ON THURSDAY AND THURSDAY Cyanocobalamin (Vitamin B-12) (Vitamin B-12) 1,000 Mcg Tablet, 1,000 MCG PO 2XW TAKES ON THURSDAY AND THURSDAY Ferrous Sulfate (Ferrous Sulfate) 325 Mg Tab, 325 MG PO 2XW TAKES ON THURSDAY AND THURSDAY Magnesium Oxide (Magnesium Oxide) 400 Mg Tablet, 400 MG PO 2XW TAKES ON THURSDAY AND THURSDAY Multivitamins (Thera M Plus Tablet) 1 Each Tablet, 1 TAB PO 2XW TAKES ON THURSDAY AND THURSDAY Niacin (Niacin) 500 Mg Tablet.er, 500 MG PO 2XW TAKES ON THURSDAY AND THURSDAY Potassium Gluconate (Potassium) 99 Mg Tablet, 595 MG PO 2XW TAKES ON THURSDAY AND THURSDAY Rosuvastatin Calcium (Rosuvastatin Calcium) 10 Mg Tablet, 10 MG PO DAILY Scheduled PRN Epinephrine (Epipen 2-Sergey) 0.3 Mg/0.3 Ml Auto.injct, 0.3 MG IM ASDIRECTED PRN for ANAPHYLAXIS Ipratropium/Albuterol Sulfate (Combivent Respimat 20-100 Mcg) 1 Aer Aer, 1 PUFF INH Q4H PRN for SHORTNESS OF BREATH Omeprazole (Omeprazole) 40 Mg Capsule.dr, 40 MG PO DAILY PRN for ACID REFLUX Allergies Coded Allergies: Contrast Media (Verified Allergy, Severe, 12/31/17) A-FIB/CHADSVASC A-FIB History Current/History of A-Fib/PAF?: Yes Current PO Anticoag Therapy: No Age/Risk Factor Scoring CHADSVASC: CHADSVASC Response (Comments) Value Age Risk Factor Age >/= 75 years old 2 Gender Risk Factor Male 0 Hx of CHF No 0 Hx of HTN Yes 1 Hx of Stroke/TIA/or VTE No 0 Hx of Diabetes No 0 Hx of Vascular Disease No 0 Total 3 Treatment Treatment ordered: Other Other anticoagulant ordered: SPRING NORWOOD MD MPH Jan 25, 2021 05:25
[2021-01-25 05:33] LABS: HEMATOCRIT 36.2 % (42.0-52.0); HEMOGLOBIN 12.1 g/dl (13.5-17.5); MEAN CORPUSCULAR HEMOGLOBIN 32.5 pg (27.0-33.0); MEAN CORPUSCULAR HGB CONC 33.4 g/dl (32.0-36.5); MEAN CORPUSCULAR VOLUME 97.3 fl (80.0-96.0); RED BLOOD COUNT 3.72 10^6/uL (4.30-6.10); WHITE BLOOD COUNT 6.9 10^3/uL (4.0-10.0)
[2021-01-25 05:52] LABS: CREATININE FOR GFR 1.52 MG/DL (0.70-1.30); GLOMERULAR FILTRATION RATE 47.8 (>42); POTASSIUM SERUM 3.7 MEQ/L (3.5-5.1)
[2021-01-25] MEDS ORDERED: ENOXAPARIN 40MG/0.4ML SYRINGE (J1650 PER 10MG) SC SCH (09:00)
[2021-01-25] MEDS: ROSUVASTATIN 10 MG TAB (CRESTOR) PO SCH (09:52)
[2021-01-25] MEDS: ASPIRIN 81MG ENTERIC TABLET PO SCH (09:53)
[2021-01-25] MEDS: DOCUSATE SODIUM 100MG CAPSULE PO SCH ×2 (09:53→20:18)
[2021-01-25] MEDS: NS 1,000 ML IV SCH ×3 (09:54→23:10)
[2021-01-25] MEDS: PIPERACILLIN/TAZOBACTAM SOD 3.375 GM in D5W MINI-BAG PLUS 50 ML IV SCH ×3 (10:06→20:18)
--- NOTE | 2021-01-25 11:11 | IPNPDOC ---
Text Note Date of Service The patient was seen on 01/25/21. NOTE SUBJECTIVE: -No acute events -BPs soft this AM, asymptomatic VITAL SIGNS: Reviewed, see below GENERAL: well appearing, NAD HEENT: EOMI, PERRLA, AT/NC NECK: supple, no noted adenopathy HEART: RRR no M/R/G, radial pulses 2+ LUNGS: CTAB, no W/R/R ABDOMEN: soft, non tender, no distension, active bowel sounds, no hepatomegaly : No CVA tenderness SKIN: No appreciable rashes MSK: no obvious deformities, no low back TTP NEURO: AOx3, strength symmetric throughout LABS: reviewed WBC 6.9 hgb 12.1 platelets being re-sent in EDTA free tube due to clumping na 139 K 3.7 Cr 1.52 ( at recent baseline) RADIOLOGY: CXR: IMPRESSION: There is no acute cardiopulmonary disease. CT ABD/Pelvis: IMPRESSION: No acute findings on this noncontrast examination. Head CT: IMPRESSION: Normal appearing CT scan of the brain. MICROBIOLOGY: Cultures pending ASSESSMENT: 75 year old M who presented with episodic fevers with thus far no identifiable cutaneous, pulmonary, urinary, intraabdominal, or [employer]GER etiology who has been admitted for management of hypotension, infectious workup with noted thrombocytopenia. PLAN: # fevers and hypotension: potentially septic -will continue empiric vanc/piptazo -f/u BCx -send tickborne panel given thrombocytopenia and some degree of atypical lymphs -check EBV -daily CBC -UA bland -head CT?, CXR, CT A/P unremarkable -continue IVF # CKD: at baseline # Thrombocytopenia: -send tickborne panel and EBV -recheck this AM with EDTA free tube due to clumping -check peripheral smear, given clumping, could be pseud-thrombocytopenia 2/2 clumping # COPD: Patient has clear lungs on exam though with mildly prolonged expiratory phase. -At this time will not place on steroid as there is no evidence of acute COPD exacerbation -Continue inhalers DISPO: medsurg DIET: regular DVT PROPHY: Lovenox DISCHARGE: pending culture results and clinical improvement CONSULTS: physical therapy and OT VS,Fishbone, I+O VS, Fishbone, I+O Laboratory Tests 01/24/21 14:35 01/25/21 05:12 Vital Signs Date Time Temp Pulse Resp B/P (MAP) Pulse Ox O2 Delivery O2 Flow Rate FiO2 01/25/21 08:00 97.3 56 18 98/55 (69) 100 Room Air 01/25/21 02:01 2.0 I&O- Last 24 Hours up to 6 AM 01/25/21 06:00 Intake Total 3320 ml Output Total 650 ml Balance 2670 ml LIEN VASQUEZ MD Jan 25, 2021 09:59
[2021-01-25 13:23] LABS: PLTBLUE- EDTA FREE CALC 91 K/mm3 (172-450)
[2021-01-25 14:47] LABS: PLTBLUE- EDTA FREE MACHINE 83 10^3/uL (172-450)
--- NOTE | 2021-01-25 15:00 | REP ---
INDICATION: fever COMPARISON: 12/22/2020 TECHNIQUE: Axial noncontrast images from the thoracic inlet to the upper abdomen with coronal and sagittal reformations. This CT examination was performed using the following dose reduction techniques: Automated exposure control, adjustment of mA and/or kv according to the patient's size, and use of iterative reconstruction technique. FINDINGS: Lung ervin are well aerated and again demonstrate mild biapical and left upper lobe scarring along with minimal chronic basilar interstitial changes. No acute consolidation. No effusion. No pneumothorax. Tracheobronchial tree is patent. No significant adenopathy. Atherosclerotic changes to the thoracic aorta and coronary arteries again noted and unchanged. No cardiomegaly or significant pericardial effusion. IMPRESSION: Chronic stable changes as compared with prior examination. No acute mediastinal or pleuroparenchymal process appreciated. <Electronically signed by Leandro Gil > 01/25/21 [id number]
[2021-01-25] MEDS: ACETAMINOPHEN TAB 650MG DOSE (2X325MG) PO PRN (16:37)
[2021-01-25] MEDS ORDERED: SODIUM CHLORIDE 0.9% 1000ML IV ONE (20:10)
[2021-01-25 20:30] LABS: INR 1.13; PROTHROMBIN TIME 14.8 SECONDS (12.5-14.3)
[2021-01-25] MEDS: APIXABAN 5 MG TAB (ELIQUIS) PO SCH (21:35)
[2021-01-26] VITALS: BP 97/54
[2021-01-26] MEDS: VANCOMYCIN HCL 1,000 MG, VIAL MATE ADAPTER 1 EACH in NS 250 ML IV SCH (02:11)
[2021-01-26 04:00] VITALS: BP 106/56
[2021-01-26] MEDS: PIPERACILLIN/TAZOBACTAM SOD 3.375 GM in D5W MINI-BAG PLUS 50 ML IV SCH ×2 (04:07→10:40)
[2021-01-26 05:34] LABS: HEMATOCRIT 36.2 % (42.0-52.0); HEMOGLOBIN 11.8 g/dl (13.5-17.5); MEAN CORPUSCULAR HEMOGLOBIN 31.9 pg (27.0-33.0); MEAN CORPUSCULAR HGB CONC 32.6 g/dl (32.0-36.5); MEAN CORPUSCULAR VOLUME 97.8 fl (80.0-96.0); WHITE BLOOD COUNT 6.3 10^3/uL (4.0-10.0)
[2021-01-26 06:00] LABS: PLATELET COUNT, AUTOMATED 94 10^3/uL (150-450)
[2021-01-26 06:06] LABS: CALCIUM LEVEL 7.6 MG/DL (8.8-10.2); CREATININE FOR GFR 1.6 MG/DL (0.70-1.30); GLOMERULAR FILTRATION RATE 45.1 (>42)
[2021-01-26 08:00] VITALS: BP 118/63
[2021-01-26] MEDS: DOCUSATE SODIUM 100MG CAPSULE PO SCH ×2 (08:03→20:36)
[2021-01-26] MEDS: ROSUVASTATIN 10 MG TAB (CRESTOR) PO SCH (08:03)
[2021-01-26] MEDS: APIXABAN 5 MG TAB (ELIQUIS) PO SCH ×2 (08:03→20:35)
[2021-01-26] MEDS: ASPIRIN 81MG ENTERIC TABLET PO SCH (08:03)
--- NOTE | 2021-01-26 09:51 | ECGEPIP ---
[facility] Test Date: 2021-01-25 Pat Name: DONALD MONTGOMERY Department: Room: [place] [address] Gender: Male Legal [employer] Intern: LAWSON : 1945 Requested By: LIEN Prasad Order Number: [id number] Reading MD: Paul Llamas Measurements Intervals [place] Rate: 64 P: 80 WI: 150 QRS: 25 QRSD: 82 T: 75 QT: 394 QTc: 406 Interpretive Statements Normal sinus rhythm Low voltage QRS No significant change compared with 01/24/2021. Electronically Signed on 01-26-2021 9:51:34 EDT by Paul Llamas
--- NOTE | 2021-01-26 09:56 | ECGEPIP ---
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 Rhythm difficult to assess for atrial activity due to excessive baseline noise; r recommend repeat ECG. Suspicious for atrial fibrillation. Electronically Signed on 01-26-2021 9:55:54 EDT by Paul Llamas
[2021-01-26] MEDS: NS 1,000 ML IV SCH ×2 (10:40→20:36)
[2021-01-26 12:00] VITALS: BP 116/64
[2021-01-26 13:36] LABS: C REACTIVE PROTEIN QUANTITATIV 9.93 MG/DL (0.00-0.30)
[2021-01-26 13:57] LABS: ERYTHROCYTE SEDIMENTATION RATE 63 mm/hr (0-20)
[2021-01-26] MEDS ORDERED: DOXYCYCLINE HYCLATE 100 MG in D5W MINI-BAG PLUS 100 ML IV SCH (16:00)
--- NOTE | 2021-01-26 16:52 | IPNPDOC ---
Date Seen The patient was seen on 01/26/21. Progress Note SUBJECTIVE: Patient was seen, examined bedside. Noted to have a fever of 102 yesterday evening. Patient denies any subjective fevers, chills, cough, dysuria, abdominal pain, diarrhea, headache, nausea, vomiting. Reports a prior history of Lyme disease and states that he is an avid outdoorsman. Of note, was found to have atrial flutter and subsequently into atrial fibrillation. He was not antico agulated previosly. Eliquis was started on 01/25/21. OBJECTIVE PHYSICAL EXAMINATION: VITAL SIGNS: please see below General: NAD, comfortable HEENT: PERRLA, EOMI, sclerae clear Neck: supple, normal ROM, no JVD Respiratory: lungs CTAB, no wheeze, no rales, no crackles CVS: RRR, normal S1, S2, no murmurs Abdo: soft, no masses, no hepatosplenomegaly, BS+, no rebound tenderness Extremities: no edema, pulses 2+ MSK: no joint deformities, normal ROM Neuro: no focal neuro deficits, moving all 4 extremities, CN2-12 intact. Strength 5/5 in all 4 extremities. No nystagmus. Psych: calm, cooperative, AAO x 3 LABORATORY DATA, IMAGING STUDIES, MICROBIOLOGY: Please see below. Echocardiogram: ordered on 01/26/21, as a STAT. DVT prophylaxis ordered?: on eliquis. ASSESSMENT AND PLAN: 75-year-old male with a past medical history of COPD, CKD, GERD, cardiac arrhythmias, status post ablation, asthma, was brought by daughter for 2 week history of experiencing fevers and chills associated with a cough. Presently no particular source identified. Continues to have fevers as well as thrombocytopenia. PROBLEMS: #Sepsis/Fever of unknown origin - last fever 102 at 1800 on - blood cultures x 2 negative at 24 hours - UA clean. CXR shows no consolidation - review CT head, CT chest and CT abdo pelvis, no acute findings - Procal 1.5 - received 2 days of IV vanco, IV zosyn - D/w fidnings with Dr. Fraga. Recommends DC vanc and zosyn. - Recommends starting doxycycline. Monitor for fevers. If improves, can be DC home, and f/u with tick borne panel #CKD - Cr 1.6, at baseline #thrombocytopenia - pending analysis of tick borne panel, possible finding lyme disease, anaplasma - EDTA plt sent, confirmed thrombocytopenia persiosts - peripheral smear reviewed - will check DIC panel #COPD, stable - prolonged expiratory wheeze - 98% on RA - not acutely dyspneic - will not start steroids as does not appear to be in acute exacerbation Dispo: pending clinical improvement. VS, I&O, 24H, Fishbone Vital Signs/I&O Vital Signs Date Time Temp Pulse Resp B/P (MAP) Pulse Ox O2 Delivery O2 Flow Rate FiO2 01/26/21 12:00 97.6 64 17 116/64 (81) 98 Room Air 01/25/21 08:00 2.0 I&O- Last 24 Hours up to 6 AM 01/26/21 06:00 Intake Total 3350 ml Output Total 725 ml Balance 2625 ml Laboratory Data 24H LABS Laboratory Tests 2 01/25/21 20:06: Prothrombin Time 14.8H, Prothromb Time International Ratio 1.13, Activated Partial Thromboplast Time 37.0 01/26/21 05:15: Nucleated Red Blood Cells % (auto) 0.0, Immature Platelet Fraction 4.6, Erythrocyte Sedimentation Rate 63H, Anion Gap 2L, Glomerular Filtration Rate 45.1, Calcium Level 7.6L, Magnesium Level 2.0, C-Reactive Protein, Quantitative 9.93H, Procalcitonin 1.59 01/26/21 13:05: Coronavirus (COVID-19)(PCR) NEGATIVE CBC/BMP Laboratory Tests 01/26/21 05:15 Microbiology Microbiology 01/24/21 Blood Culture - Preliminary, Resulted No growth after 24 hours . All specim... 01/24/21 Respiratory Virus Panel (PCR) (PAMELA) - Final, Complete 01/24/21 Blood Culture - Preliminary, Resulted No Growth after 48 hours. All Specime... HIMANSHU ROSEN MD Jan 26, 2021 16:52
[2021-01-26 17:23] LABS: INR 1.22; PROTHROMBIN TIME 15.7 SECONDS (12.5-14.3)
[2021-01-26 17:24] LABS: PARTIAL THROMBOPLASTIN TIME 35.2 SECONDS (24.2-38.5)
[2021-01-26 17:26] LABS: D-DIMER QUANT 3637.62 ng/ml (<500)
[2021-01-26] MEDS: ACETAMINOPHEN TAB 650MG DOSE (2X325MG) PO PRN (18:03)
[2021-01-26 20:00] VITALS: BP 138/70
[2021-01-27] VITALS: BP 113/54
[2021-01-27 04:00] VITALS: BP 121/59
[2021-01-27] MEDS ORDERED: EMLA CREAM 5GM TUBE (LIDOCAINE/PRILOCAINE) TOP PRN (05:10)
[2021-01-27 06:04] LABS: HEMATOCRIT 35.6 % (42.0-52.0); HEMOGLOBIN 11.8 g/dl (13.5-17.5); MEAN CORPUSCULAR HEMOGLOBIN 32.1 pg (27.0-33.0); MEAN CORPUSCULAR HGB CONC 33.1 g/dl (32.0-36.5); MEAN CORPUSCULAR VOLUME 96.7 fl (80.0-96.0); PLATELET COUNT, AUTOMATED 107 10^3/uL (150-450); RED BLOOD COUNT 3.68 10^6/uL (4.30-6.10); WHITE BLOOD COUNT 5.5 10^3/uL (4.0-10.0)
[2021-01-27 06:24] LABS: CALCIUM LEVEL 7.7 MG/DL (8.8-10.2); CREATININE FOR GFR 1.39 MG/DL (0.70-1.30)
[2021-01-27 07:43] VITALS: BP 106/56
--- NOTE | 2021-01-27 09:59 | REP ---
INDICATION: r/o DVT COMPARISON: Right and left TECHNIQUE: [place] scale and color Doppler evaluation using linear high frequency transducer. FINDINGS: Ultrasound examination of the right and left lower extremity deep venous structures from the common femoral vein through the calf/ankle to include the peroneal, and tibial veins demonstrates normal compressibility flow and wave patterns in response to respiration and augmentation. There is no evidence for deep venous thrombosis. IMPRESSION: No evidence for deep venous thrombosis. <Electronically signed by Leandro Gil > 01/27/21 0956
--- NOTE | 2021-01-27 10:20 | DS.PDOC ---
Discharge Summary General Date of Admission Jan 24, 2021 at 14:08 Date of Discharge 01/27/21 Discharge Summary PROCEDURES PERFORMED DURING STAY: [None]. COMPLICATIONS/CHIEF COMPLAINT: Fever/ Hypotension. HISTORY OF PRESENT ILLNESS: "Mr. Jack is a 75 year old generally healthy male who was brought to the ED this evening by his daughter for fevers and chills. Patient states that for the past 2 weeks he has been experiencing what he felt like was a COPD exacerbation and was seen at urgent care as well as by his PCM and was started on a prednisone burst. He felt better while he was on this medication but over the past 2 days he has felt progressively more feverish and had chills. He does state that his initial cough has improved slightly and he is not bringing anything up. His daughter states that he has been sleeping more heavily than normal for the past couple of days. Patient endorsed a slight stomach ache and nausea while in the ED, however currently he denies any abdominal complaints, and other than a mild headache and generalized mild weakness, he feels generally fine, he also denies dysuria. Of note: while in the fast track, patient began to experience episodes of hypotension and confusion that slightly responded to fluid boluses and he was transferred to the more acute side of the ED." HOSPITAL COURSE: #Sepsis/Fever of unknown origin - patient had persistent fevers, requested to leave AMA. - blood cultures x 2 negative at 24 hours - UA clean. CXR shows no consolidation - review CT head, CT chest and CT abdo pelvis, no acute findings - Procal 1.5 - received 2 days of IV vanco, IV zosyn - D/w findings with Dr. Fraga. Recommends DC vanc and zosyn. - Recommends starting doxycycline. Monitor for fevers. If improves, can be DC home, and f/u with tick borne panel - added augmentin on DC for additional coverage #CKD - Cr 1.35-1.6, at baseline #thrombocytopenia - pending analysis of tick borne panel, possible finding lyme disease, anaplasma - EDTA plt sent, confirmed thrombocytopenia persiosts - peripheral smear reviewed - checked DIC panel: elevated D-dimer to 3637. INR 1.22. Fibrinogen 480. LDH 243. - discussed with Dr. 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 #COPD, stable - prolonged expiratory wheeze - 98% on RA - not acutely dyspneic - will not start steroids as does not appear to be in acute exacerbation #Atrial fibrillation - seen on tele, highly suspicious for afib on EKG, rate controlled - was started on eliquis - reports a prior history of cardiac ablation - I discussed with Dr. Llamas. Agrees with anticoagulation - Echo was performed, final report pending - patient was advised to follow up with cardiology, referral was given - left AMA. Dispo: pending clinical improvement. DISCHARGE MEDICATIONS: Please see below. ALLERGIES: Please see below. PHYSICAL EXAMINATION ON DISCHARGE: VITAL SIGNS: please see below General: NAD, comfortable HEENT: PERRLA, EOMI, sclerae clear Neck: supple, normal ROM, no JVD Respiratory: lungs CTAB, no wheeze, no rales, no crackles CVS: RRR, normal S1, S2, no murmurs Abdo: soft, no masses, no hepatosplenomegaly, BS+, no rebound tenderness Extremities: no edema, pulses 2+ MSK: no joint deformities, normal ROM Neuro: no focal neuro deficits, moving all 4 extremities, CN2-12 intact. Strength 5/5 in all 4 extremities. No nystagmus. Psych: calm, cooperative, AAO x 3 LABORATORY DATA: Please see below. IMAGING: Bilateral venous duplex (01/27/21): IMPRESSION: No evidence for deep venous thrombosis. CT chest without contrast (01/25/21): IMPRESSION: Chronic stable changes as compared with prior examination. No acute mediastinal or pleuroparenchymal process appreciated. CT head wo contrast (01/24/21): IMPRESSION: Normal appearing CT scan of the brain. CT abdo pelvis wo contrast (01/24/21): IMPRESSION: No acute findings on this noncontrast examination. PROGNOSIS: uncertain, left AMA. ACTIVITY: [As tolerated]. DIET: as tolerated DISCHARGE PLAN: left AMA. FUO workup incomplete. Having persistent fevers. Given doxycycline 100 mg BID and augmentin 875 BID rx for abx coverage. Thrombotopenia workup seems to suggest low grade DIC. Finally, found to have afib, despite hx of prior ablation. Started on eliquis. Referrals given to ID and cardiology. DISPOSITION: left AMA DISCHARGE INSTRUCTIONS: . Please follow-up with your primary care doctor within 3-5 days . Please follow-up with cardiology within 1-2 weeks . Please follow-up with infectious disease in 1-2 weeks. . Please taking medications as prescribed. . If you develop bleeding, chest pain, shortness of breath, seizures, nausea, fevers, or otherwise worsening of your symptoms, please call 911 or return to the nearest emergency room ITEMS TO FOLLOWUP ON ON OUTPATIENT: 1. Final blood cultures 2. Tick borne panel DISCHARGE CONDITION: Stable TIME SPENT ON DISCHARGE: 35 minutes Vital Signs/I&Os Vital Signs Date Time Temp Pulse Resp B/P (MAP) Pulse Ox O2 Delivery O2 Flow Rate FiO2 01/27/21 07:43 98.5 65 18 106/56 (73) 98 Room Air 01/25/21 08:00 2.0 I&O- Last 24 Hours up to 6 AM 01/27/21 06:00 Intake Total 300 ml Balance 300 ml Laboratory Data Labs 24H Laboratory Tests 2 01/26/21 13:05: Coronavirus (COVID-19)(PCR) NEGATIVE 01/26/21 17:00: Prothrombin Time 15.7H, Prothromb Time International Ratio 1.22, Activated Partial Thromboplast Time 35.2, Fibrinogen 480H, D-Dimer, Quantitative 3637.62H, Lactate Dehydrogenase 243H 01/27/21 05:37: Nucleated Red Blood Cells % (auto) 0.0, Anion Gap 3L, Glomerular Filtration Rate 53.0, Calcium Level 7.7L CBC/BMP Laboratory Tests 01/26/21 17:00 01/27/21 05:37 Microbiology Microbiology 01/24/21 Blood Culture - Preliminary, Resulted No Growth after 48 hours. All Specime... 01/24/21 Respiratory Virus Panel (PCR) (PAMELA) - Final, Complete 01/24/21 Blood Culture - Preliminary, Resulted No Growth after 48 hours. All Specime... Discharge Medications Scheduled Amoxicillin/Potassium Clav (Amox-Clav 875-125 mg Tablet) 1 Each Tablet, 875 MG PO BID Apixaban (Eliquis) 5 Mg Tablet, 5 MG PO BID Aspirin (Aspirin EC) 81 Mg Tablet.dr, 81 MG PO DAILY, (Reported) Cholecalciferol (Vitamin D3) (Vitamin D3) 1,000 Unit Tablet, 1,000 UNITS PO 2XW, (Reported) TAKES ON THURSDAY AND THURSDAY Cyanocobalamin (Vitamin B-12) (Vitamin B-12) 1,000 Mcg Tablet, 1,000 MCG PO 2XW, (Reported) TAKES ON THURSDAY AND THURSDAY Doxycycline Monohydrate (Doxycycline) 100 Mg Capsule, 1 CAP PO BID Ferrous Sulfate (Ferrous Sulfate) 325 Mg Tab, 325 MG PO 2XW, (Reported) TAKES ON THURSDAY AND THURSDAY Magnesium Oxide (Magnesium Oxide) 400 Mg Tablet, 400 MG PO 2XW, (Reported) TAKES ON THURSDAY AND THURSDAY Multivitamins (Thera M Plus Tablet) 1 Each Tablet, 1 TAB PO 2XW, (Reported) TAKES ON THURSDAY AND THURSDAY Niacin (Niacin) 500 Mg Tablet.er, 500 MG PO 2XW, (Reported) TAKES ON THURSDAY AND THURSDAY Potassium Gluconate (Potassium) 99 Mg Tablet, 595 MG PO 2XW, (Reported) TAKES ON THURSDAY AND THURSDAY Rosuvastatin Calcium (Rosuvastatin Calcium) 10 Mg Tablet, 10 MG PO DAILY, (Reported) Scheduled PRN Epinephrine (Epipen 2-Sergey) 0.3 Mg/0.3 Ml Auto.injct, 0.3 MG IM ASDIRECTED PRN for ANAPHYLAXIS, (Reported) Ipratropium/Albuterol Sulfate (Combivent Respimat 20-100 Mcg) 1 Aer Aer, 1 PUFF INH Q4H PRN for SHORTNESS OF BREATH, (Reported) Omeprazole (Omeprazole) 40 Mg Capsule.dr, 40 MG PO DAILY PRN for ACID REFLUX, (Reported) Allergies Coded Allergies: Contrast Media (Verified Allergy, Severe, 12/31/17) HIMANSHU ROSEN MD Jan 27, 2021 10:20
[2021-01-27] MEDS ORDERED: DOXY-350 PO (10:27)
[2021-01-27] MEDS ORDERED: ELIQ5TAB PO (10:27)
[2021-01-27] MEDS ORDERED: AMOX875T2 PO (10:28)
--- NOTE | 2021-01-28 12:50 | ECHO ---
ECHOCARDIOGRAM DATE OF PROCEDURE: 01/26/2021 Age: 75 Gender: Male Height: 5 feet 11 inches Weight: 202 pounds REFERRING PHYSICIAN: Horacio Catalan MD INDICATION: Cardiac dysrhythmia unspecified, hypotension, fever. MEASUREMENTS: 2D Measurements: Aortic root 2.9 cm Proximal ascending aorta 3.3 cm Left atrium 4.0 cm Intraventricular septum 0.75 cm Posterior wall 0.91 cm Left ventricle diastole 5.3 cm Left ventricle systole 3.0 cm Doppler Measurements: Aortic valve velocity 122 cm/s LVOT velocity 101 cm/s LVOT VTI 25.3 cm Trace mitral regurgitation Mitral E velocity 89.5 cm/s Mitral A velocity 68.6 cm/s Mitral deceleration time 177 msec Trace tricuspid regurgitation No pulmonic regurgitation Pulmonary artery acceleration time 127 msec MITRAL ANNULAR TISSUE DOPPLER E prime septal 8.4 cm/s DESCRIPTION: Rhythm was sinus. Image quality was adequate. This was a 2D, M-mode, color flow Doppler, and pulsed wave Doppler examination including mitral annular tissue Doppler. CONCLUSIONS: 1. Normal left ventricle internal dimensions and wall thickness. Normal regional LV wall motion and wall thickening. Normal LV systolic function. LVEF 60% by visual estimate. Normal LV diastolic function. 2. Normal right ventricle size and systolic function. Suggestive of normal pulmonary artery systolic pressure. 3. Normal cardiac valves. No vegetations. 4. Tiny pericardial effusion. 5. Otherwise normal appearing echocardiogram Doppler findings.
[2021-01-30 11:08] LABS: EBV PCR QUAL WHOLE BLD Positive (Negative); EBV VIRAL CAPSID AG IgM 48.2 U/mL (0.0-35.9)
[2021-01-30 14:09] LABS: BODY FLUID CULTURE Not indicated. (.); LEGIONELLA ANTIGEN URINE Negative (Negative); ORGANISM ID Not indicated. (.); SPECIMEN SOURCE Urine (.); URINE STREP PNEUMONIAE ANTIGEN Negative (Negative)
== END 2021-01-27 10:59 | disposition left against medical advice (07) ==
LOC: M ED 14:07 → M ED INP 14:08 → ENRESERV 22:46 → M PCU 01-25 02:47
PROVIDERS: ADMIT General Practice; ATTEND Family Medicine
DX: R50.9 Fever, unspecified (principal); Z53.20 Procedure and treatment not carried out because of patient's decision for unspecified reasons; A41.9 Sepsis, unspecified organism; I95.9 Hypotension, unspecified; D69.6 Thrombocytopenia, unspecified; N18.9 Chronic kidney disease, unspecified; J44.9 Chronic obstructive pulmonary disease, unspecified; I48.91 Unspecified atrial fibrillation; Z79.01 Long term (current) use of anticoagulants; Z79.82 Long term (current) use of aspirin; Z79.899 Other long term (current) drug therapy; Z91.041 Radiographic dye allergy status
CPT/HCPCS: 36415; 36600; 70450; 71045; 71250; 74176; 80047; 80048; 80076; 80202; 81001; 82550; 82553; 82803; 83605; 83615; 83735; 83880; 84145; 84436; 84443; 84484; 85025; 85027; 85049; 85055; 85379; 85384; 85610; 85652; 85730; 86140; 86665; 87040; 87449; 87641; 87798; 87899; 93005; 93041; 93306; 93970; 96361; 96365; 96366; 96367; 96372; 96375; 96376; 97116; 97161; 97165; 99285; G0378; J1650; J2405; J2543; J3370; U0002

== ENCOUNTER → 2021-02-05 | Outpatient (CLI) | payer MEDICARE, BC, OTHER ==
[~2021-02-05] MED LIST changes: +AMOX875T2 PO; +ASPI-161 PO; +CYAN100050 PO; +D31000TA2 PO; +DOXY-350 PO; +ELIQ5TAB PO; +EPIP0.3I2 IM; +MAGN400T3 PO; +NIAC500T93 PO; +OMEP-221; +OMEP-221 PO; +POTA99TA14 PO; +ROSU10TA6; +ROSU10TA6 PO; +VITMTA PO
[2021-02-05 13:53] LABS: BASO # 0.1 10^3/uL (0.0-0.2); BASO % 0.9 % (0.0-1.0); EOS # 0.2 10^3/uL (0.0-0.5); EOS % 2.7 % (0.0-3.0); HEMATOCRIT 33.8 % (42.0-52.0); HEMOGLOBIN 12.1 g/dl (13.5-17.5); LYMPH # 2.5 10^3/uL (1.5-5.0); LYMPH % 36.7 % (24.0-44.0); MEAN CORPUSCULAR HEMOGLOBIN 36.4 pg (27.0-33.0); MEAN CORPUSCULAR HGB CONC 35.8 g/dl (32.0-36.5); MEAN CORPUSCULAR VOLUME 101.8 fl (80.0-96.0); MONO # 0.7 10^3/uL (0.0-0.8); MONO % 10.6 % (2.0-8.0); NEUTROPHILS # 3.3 10^3/uL (1.5-8.5); NEUTROPHILS % 48.7 % (36.0-66.0); PLATELET COUNT, AUTOMATED 196 10^3/uL (150-450); RED BLOOD COUNT 3.32 10^6/uL (4.30-6.10); WHITE BLOOD COUNT 6.8 10^3/uL (4.0-10.0)
[2021-02-05 15:00] LABS: CALCIUM LEVEL 9.4 MG/DL (8.8-10.2); CREATININE FOR GFR 1.71 MG/DL (0.70-1.30); GLOMERULAR FILTRATION RATE 41.8 (>42); POTASSIUM SERUM 4.4 MEQ/L (3.5-5.1)
== END ==
LOC: M PLALAB 09:41
PROVIDERS: ATTEND Nurse Practitioner Family
DX: B27.90 Infectious mononucleosis, unspecified without complication (principal)

== ENCOUNTER → 2021-03-27 | Outpatient (CLI) | payer MEDICARE, BC, OTHER ==
[2021-03-27 11:28] LABS: BASO # 0.1 10^3/uL (0.0-0.2); BASO % 0.5 % (0.0-1.0); EOS # 0.4 10^3/uL (0.0-0.5); EOS % 4.5 % (0.0-3.0); HEMOGLOBIN 12.7 g/dl (13.5-17.5); LYMPH # 2.1 10^3/uL (1.5-5.0); LYMPH % 22.4 % (24.0-44.0); MEAN CORPUSCULAR HEMOGLOBIN 32.4 pg (27.0-33.0); MEAN CORPUSCULAR HGB CONC 33.4 g/dl (32.0-36.5); MEAN CORPUSCULAR VOLUME 96.9 fl (80.0-96.0); MONO # 0.8 10^3/uL (0.0-0.8); MONO % 8.4 % (2.0-8.0); NEUTROPHILS # 5.9 10^3/uL (1.5-8.5); NEUTROPHILS % 63.9 % (36.0-66.0); PLATELET COUNT, AUTOMATED 178 10^3/uL (150-450); RED BLOOD COUNT 3.92 10^6/uL (4.30-6.10); WHITE BLOOD COUNT 9.2 10^3/uL (4.0-10.0)
[2021-03-27 12:07] LABS: ERYTHROCYTE SEDIMENTATION RATE 65 mm/hr (0-20)
[2021-03-27 12:56] LABS: ALBUMIN 3.5 GM/DL (3.2-5.2); ALT/SGPT 33 U/L (12-78); BILIRUBIN,TOTAL 0.3 MG/DL (0.2-1.0); BLOOD UREA NITROGEN 19 MG/DL (7-18); CALCIUM LEVEL 9.9 MG/DL (8.8-10.2); CARBON DIOXIDE LEVEL 27 MEQ/L (21-32); CHLORIDE LEVEL 111 MEQ/L (98-107); CREATININE FOR GFR 1.41 MG/DL (0.70-1.30); GLOMERULAR FILTRATION RATE 52.2 (>42); GLUCOSE, FASTING 99 MG/DL (70-100); HEPATITIS B SURFACE ANTIGEN NEGATIVE (NEGATIVE); HIV 1&2 SCREEN CENTAUR NEGATIVE (NEGATIVE); IMMUNOGLOBULIN G 988 MG/DL (681-1648); POTASSIUM SERUM 4.5 MEQ/L (3.5-5.1); RHEUMATOID FACTOR QUANT < 10.0 IU/ML (<15.0); SODIUM LEVEL 143 MEQ/L (136-145); TOTAL PROTEIN 7.4 GM/DL (6.4-8.2)
== END ==
LOC: M LAB 10:23
PROVIDERS: ATTEND Family Medicine
DX: G62.9 Polyneuropathy, unspecified (principal)

== ENCOUNTER → 2021-04-24 | Outpatient (CLI) | payer MEDICARE, BC, OTHER ==
--- NOTE | 2021-04-24 16:43 | REP ---
PROCEDURE NAME: FLUORO GUID FOR NEEDLE PLACEMT SEDATION: None CLINICAL INFORMATION: POLYNEUROPATHY. PHYSICIAN: Madonna Mccoy PROCEDURE DESCRIPTION: The procedure was performed by SHADE Otto, under the direct supervision of Dr. Ragland. The risks and benefits of the procedure were explained to the patient and an informed consent was obtained both verbally and written. Directly prior to the start of the procedure a formal time-out was completed in the procedure room. The L3-4 interspace was localized using fluoroscopic guidance. The skin was prepped and draped in a sterile fashion. Five 1 % lidocaine 10 milligrams/milliliter was used as a local anesthetic. Using fluoroscopic guidance a 22 gauge spinal needle was inserted and advanced without significant difficulty in to the cerebral spinal space at the L3-4 interspinous level. Clear freely flowing cerebral spinal fluid was retrieved. The initial opening pressure was measured by manometry at 19 cm of water. A total of 12 mL of cerebral spinal fluid was withdrawn gently and sent to the laboratory for further analysis. The needle was withdrawn. 0.1 minutes of fluoroscopy time was utilized for this procedure. Some fluoroscopic images are performed with last image hold technology. These images require no additional radiation. The patient tolerated the procedure well and there were no immediate complications. After the appropriate amount of monitored convalescence the patient was discharged from the department. ESTIMATED BLOOD LOSS: Less than 1 mL COMPLICATIONS: None CONCLUSION: Fluoroscopy guided lumbar puncture and CSF retrieval. <Electronically signed by Madonna Mccoy > 04/24/21 1636 <Electronically signed by Saravanan Ragland > 04/24/21 [id number]
[2021-04-24 17:11] VITALS: BP 148/77
[2021-04-24 17:14] LABS: CSF TUBE# GLU TUBE 1; CSF TUBE# TP TUBE 1; GLUCOSE CSF 61 MG/DL (40-75); TOTAL PROTEIN,CSF 113 MG/DL (15-45)
[2021-04-24 17:28] LABS: APPEARANCE, CSF CLEAR (CLEAR); COLOR, CSF COLORLESS (COLORLESS); CSF TUBE# CELL CNT TUBE 1
[2021-04-24 21:01] LABS: LDH, BODY FLUID 30 U/L (NOT ESTABLISHED); SOURCE, BODY FLUID LDH OTHER
[2021-04-29 20:08] LABS: IMMUNOGLOBULIN G CSF 7.9 mg/dL (0.0-10.3); WEST NILE VIRUS ANTIBODY IgG Negative (Negative); WEST NILE VIRUS ANTIBODY IgM Negative (Negative)
== END ==
LOC: M IRPRO 13:59
PROVIDERS: ATTEND Family Medicine
DX: G62.9 Polyneuropathy, unspecified (principal); I48.92 Unspecified atrial flutter

== ENCOUNTER → 2021-05-17 | Outpatient (CLI) | payer MEDICARE, BC, OTHER ==
[~2021-05-17] MED LIST changes: -MAGN400T3 PO; +MAGN400T33 PO
== END ==
LOC: M PLALAB 13:02
PROVIDERS: ATTEND Family Medicine
DX: G62.9 Polyneuropathy, unspecified (principal); Z23 Encounter for immunization
CPT/HCPCS: 36415; 87798; 90682; G0008; G0463

== ENCOUNTER → 2021-12-19 | Outpatient (CLI) | payer MEDICARE, BC, OTHER ==
[~2021-12-19] MED LIST changes: -D31000TA2 PO; -OMEP-221; -OMEP-221 PO; +OMEP40CA5; +OMEP40CA5 PO; +VITA100093 PO
[2021-12-19 15:43] LABS: BASO # 0.1 10^3/uL (0.0-0.2); BASO % 0.9 % (0.0-1.0); EOS # 0.5 10^3/uL (0.0-0.5); EOS % 9.1 % (0.0-3.0); HEMATOCRIT 38.6 % (42.0-52.0); HEMOGLOBIN 13.3 g/dl (13.5-17.5); LYMPH # 1.5 10^3/uL (1.5-5.0); LYMPH % 27.3 % (24.0-44.0); MEAN CORPUSCULAR HEMOGLOBIN 34.6 pg (27.0-33.0); MEAN CORPUSCULAR HGB CONC 34.5 g/dl (32.0-36.5); MEAN CORPUSCULAR VOLUME 100.5 fl (80.0-96.0); MONO # 1.1 10^3/uL (0.0-0.8); MONO % 19.6 % (2.0-8.0); NEUTROPHILS # 2.4 10^3/uL (1.5-8.5); NEUTROPHILS % 42.7 % (36.0-66.0); PLATELET COUNT, AUTOMATED 161 10^3/uL (150-450); RED BLOOD COUNT 3.84 10^6/uL (4.30-6.10); WHITE BLOOD COUNT 5.6 10^3/uL (4.0-10.0)
[2021-12-19 16:15] LABS: ALBUMIN 3.9 GM/DL (3.2-5.2); ALT/SGPT 47 U/L (12-78); BILIRUBIN,TOTAL 0.5 MG/DL (0.2-1.0); BLOOD UREA NITROGEN 20 MG/DL (7-18); CALCIUM LEVEL 10.1 MG/DL (8.8-10.2); CARBON DIOXIDE LEVEL 28 MEQ/L (21-32); CHLORIDE LEVEL 107 MEQ/L (98-107); CREATININE FOR GFR 1.64 MG/DL (0.70-1.30); FERRITIN 93 NG/ML (26-388); FREE T4 0.96 NG/DL (0.76-1.46); GLOMERULAR FILTRATION RATE 43.8 (>42); GLUCOSE, FASTING 97 MG/DL (70-100); IRON (FE) 47 UG/DL (65-175); POTASSIUM SERUM 4.8 MEQ/L (3.5-5.1); SODIUM LEVEL 142 MEQ/L (136-145); TOTAL IRON BINDING CAPACITY 336 UG/DL (250-450); TOTAL PROTEIN 7.8 GM/DL (6.4-8.2)
[2021-12-19 16:18] LABS: TOTAL 25(OH) VITAMIN D 37.7 NG/ML (30.0-100.0)
[2021-12-19 16:19] LABS: PTH INTACT 34.2 PG/ML (18.5-88.0)
[2021-12-25 19:09] LABS: FREE KAPPA LIGHT CHAINS SERUM 57.4 mg/L (3.3-19.4); KAPPA/LAMBDA RATIO SERUM 2.05 (0.26-1.65)
== END ==
LOC: M PLALAB 12:43
PROVIDERS: ATTEND Family Medicine
DX: J44.9 Chronic obstructive pulmonary disease, unspecified (principal); D47.2 Monoclonal gammopathy; D50.9 Iron deficiency anemia, unspecified; Z12.5 Encounter for screening for malignant neoplasm of prostate; Z79.899 Other long term (current) drug therapy

== ENCOUNTER → 2021-12-30 | Outpatient (CLI) | payer MEDICARE, BC, OTHER | LOC: M RAD 15:04 | PROVIDERS: ATTEND Family Medicine | DX: R91.1 Solitary pulmonary nodule (principal) ==

== ENCOUNTER → 2022-01-02 | Outpatient (REF) | payer MEDICARE, BC, OTHER | LOC: M SFHCPLAZ 19:49 | PROVIDERS: ATTEND Family Medicine | DX: J44.9 Chronic obstructive pulmonary disease, unspecified (principal) ==

== ENCOUNTER → 2022-01-10 | Outpatient (CLI) | payer MEDICARE, BC, OTHER ==
[2022-01-10 15:39] LABS: ALBUMIN 3.5 GM/DL (3.2-5.2); CALCIUM LEVEL 9.3 MG/DL (8.8-10.2); CREATININE FOR GFR 1.64 MG/DL (0.70-1.30); GLOMERULAR FILTRATION RATE 43.7 (>42); PHOSPHORUS LEVEL 3.2 MG/DL (2.5-4.9); POTASSIUM SERUM 4.6 MEQ/L (3.5-5.1)
== END ==
LOC: M PLALAB 12:26
PROVIDERS: ATTEND Physician Assistant
DX: R79.89 Other specified abnormal findings of blood chemistry (principal)

== ENCOUNTER → 2022-01-10 | Outpatient (CLI) | payer MEDICARE, BC, OTHER ==
[2022-01-10 15:38] LABS: CHOLESTEROL RISK RATIO 3.277 (<5)
== END ==
LOC: M PLALAB 12:23
PROVIDERS: ATTEND Physician Assistant
DX: E78.5 Hyperlipidemia, unspecified (principal)

== ENCOUNTER → 2022-02-04 | Outpatient (CLI) | payer MEDICARE, BC, OTHER ==
[~2022-02-04] MED LIST changes: +PROHANCE 279.3MG/ML 15ML VIAL As Ordered ONE
== END ==
LOC: M RAD 15:44
PROVIDERS: ATTEND Physician Assistant
DX: M47.816 Spondylosis without myelopathy or radiculopathy, lumbar region (principal); M51.26 Other intervertebral disc displacement, lumbar region
CPT/HCPCS: 72158; A9576

== ENCOUNTER → 2022-02-24 | Outpatient (CLI) | payer MEDICARE, BC, OTHER ==
[~2022-02-24] MED LIST changes: +CIPR500T39; +PRED5TA; +PREG50CA2 PO; -PROHANCE 279.3MG/ML 15ML VIAL As Ordered ONE
== END ==
LOC: M LABSMTC 09:44
PROVIDERS: ATTEND Anesthesiology
DX: Z20.828 Contact with and (suspected) exposure to other viral communicable diseases (principal); Z11.59 Encounter for screening for other viral diseases

== ENCOUNTER 2022-02-26 12:56 | Day surgery (SDC) | payer MEDICARE, BC, OTHER ==
[~2022-02-26] VITALS: Ht 180.3 cm; Wt 99.2 kg
[~2022-02-26 12:56] MED LIST changes: -CIPR500T39; -PRED5TA
[2022-02-26] MEDS ORDERED: PRED5TA (13:09)
[2022-02-26] MEDS ORDERED: CIPR500T39 (13:09)
[2022-02-26] MEDS ORDERED: ceFAZolin 2 GM/D5W 50 ML IV BAG (J0690 PER 500MG) As Ordered ONE (13:32)
[2022-02-26] MEDS ORDERED: LR 1,000 ML IV SCH (13:45)
[2022-02-26] MEDS ORDERED: ceFAZolin SOD 2 GM in IV 1 EA IV ONE (13:55)
[2022-02-26 14:13] LABS: CALCIUM LEVEL 9.5 MG/DL (8.8-10.2); CREATININE FOR GFR 1.53 MG/DL (0.70-1.30); GLOMERULAR FILTRATION RATE 47.3 (>42); POTASSIUM SERUM 4.6 MEQ/L (3.5-5.1)
[2022-02-26] MEDS ORDERED: LIDOCAINE 1% SDV 30ML VIAL As Ordered ONE (14:20)
[2022-02-26] MEDS ORDERED: MUPIROCIN 2% OINT 22 GM TUBE As Ordered ONE (14:51)
[2022-02-26] MEDS ORDERED: propofoL 200 MG/20 ML VIAL As Ordered ONE (14:55)
[2022-02-26] MEDS ORDERED: fentaNYL 100 MCG/2 ML INJECTION As Ordered ONE (14:55)
[2022-02-26 15:45] VITALS: BP 124/63
== END 2022-02-26 16:00 | disposition home or self-care (01) ==
LOC: M SDC 12:56
PROVIDERS: ATTEND Internal Medicine Cardiovascular Disease
DX: I48.91 Unspecified atrial fibrillation (principal); K21.9 Gastro-esophageal reflux disease without esophagitis; Z79.899 Other long term (current) drug therapy; Z87.891 Personal history of nicotine dependence; J44.9 Chronic obstructive pulmonary disease, unspecified; Z79.51 Long term (current) use of inhaled steroids; G47.33 Obstructive sleep apnea (adult) (pediatric); Z91.041 Radiographic dye allergy status
CPT/HCPCS: 33285; 36415; 80048; C1764; J0690; J3010

== ENCOUNTER 2022-04-07 09:30 | Outpatient (CLI) | payer MEDICARE, BC, OTHER ==
[~2022-04-07] VITALS: Ht 177.8 cm; Wt 102.0 kg
[2022-04-07 09:15] VITALS: BP 119/58
[~2022-04-07 09:30] MED LIST changes: +ACETAMINOPHEN TAB 650MG DOSE (2X325MG) PO ONE; +ALBUTEROL SULFATE 2.5 MG/0.5 ML INH NEB SOLN INH PRN; +CIPR500T39; +EPINEPHrine INJ 1 MG/ML 1ML AMP IM PRN; +IMMUNE GLOBULIN 10% 10 GM in IV 1 EA IV ONE; +IMMUNE GLOBULIN 10% 40 GM in IV 1 EA IV ONE; +NS 1,000 ML IV SCH; +PRED5TA; +diphenhydrAMINE 25MG CAP PO ONE; +diphenhydrAMINE 50MG/ML VIAL (J1200) IV PRN; +methylPREDNISolone 125MG 2ML VIAL IV PRN
[2022-04-07 10:20] VITALS: BP 128/63
[2022-04-07 10:50] VITALS: BP 146/72
[2022-04-07 11:20] VITALS: BP 150/79
[2022-04-07 11:50] VITALS: BP 161/77
[2022-04-07 13:25] VITALS: BP 160/77
== END 2022-04-07 13:25 | disposition home or self-care (01) ==
LOC: M INFU 09:30
PROVIDERS: ATTEND Psychiatry & Neurology Neurology
DX: G61.81 Chronic inflammatory demyelinating polyneuritis (principal); Z91.041 Radiographic dye allergy status
CPT/HCPCS: 96365; 96366; J1459

== ENCOUNTER 2022-04-08 09:15 | Outpatient (CLI) | payer MEDICARE, BC, OTHER ==
[~2022-04-08] VITALS: Ht 177.8 cm; Wt 102.0 kg
[~2022-04-08 09:15] MED LIST changes: -ACETAMINOPHEN TAB 650MG DOSE (2X325MG) PO ONE; -IMMUNE GLOBULIN 10% 10 GM in IV 1 EA IV ONE; -IMMUNE GLOBULIN 10% 40 GM in IV 1 EA IV ONE; -NS 1,000 ML IV SCH; -diphenhydrAMINE 25MG CAP PO ONE
[2022-04-08 09:23] VITALS: BP 135/81
[2022-04-08] MEDS ORDERED: ACETAMINOPHEN TAB 650MG DOSE (2X325MG) PO ONE (09:30)
[2022-04-08] MEDS ORDERED: IMMUNE GLOBULIN 10% 10 GM in IV 1 EA IV ONE (09:30)
[2022-04-08] MEDS ORDERED: diphenhydrAMINE 25MG CAP PO ONE (09:30)
[2022-04-08] MEDS ORDERED: IMMUNE GLOBULIN 10% 40 GM in IV 1 EA IV ONE (09:30)
[2022-04-08] MEDS ORDERED: NS 1,000 ML IV SCH (09:30)
[2022-04-08 12:52] VITALS: BP 163/76
== END 2022-04-08 12:54 | disposition home or self-care (01) ==
LOC: M INFU 09:15
PROVIDERS: ATTEND Psychiatry & Neurology Neurology
DX: G61.81 Chronic inflammatory demyelinating polyneuritis (principal); Z91.041 Radiographic dye allergy status
CPT/HCPCS: 96365; 96366; J1459

== ENCOUNTER 2022-04-09 09:15 | Outpatient (CLI) | payer MEDICARE, BC, OTHER ==
[2022-04-09] VITALS (7 sets, daily range): BP systolic 130–180; BP diastolic 70–79
[~2022-04-09] VITALS: Ht 177.8 cm; Wt 102.5 kg
[~2022-04-09 09:15] MED LIST changes: +ALBUTEROL SULFATE 2.5 MG/0.5 ML INH NEB SOLN INH PRN; +EPINEPHrine INJ 1 MG/ML 1ML AMP IM PRN; +diphenhydrAMINE 50MG/ML VIAL (J1200) IV PRN; +methylPREDNISolone 125MG 2ML VIAL IV PRN
[2022-04-09] MEDS ORDERED: NS 1,000 ML IV SCH (09:30)
[2022-04-09] MEDS ORDERED: IMMUNE GLOBULIN 10% 40 GM in IV 1 EA IV ONE (09:30)
[2022-04-09] MEDS ORDERED: IMMUNE GLOBULIN 10% 10 GM in IV 1 EA IV ONE (09:30)
[2022-04-09] MEDS ORDERED: diphenhydrAMINE 25MG CAP PO ONE (09:30)
[2022-04-09] MEDS ORDERED: ACETAMINOPHEN TAB 650MG DOSE (2X325MG) PO ONE (09:30)
== END 2022-04-09 13:55 ==
LOC: M INFU 09:15
PROVIDERS: ATTEND Psychiatry & Neurology Neurology
DX: G61.81 Chronic inflammatory demyelinating polyneuritis (principal); Z91.041 Radiographic dye allergy status
CPT/HCPCS: 36415; 96365; 96366; G0480; J1459

== ENCOUNTER → 2022-04-09 | Outpatient (CLI) | payer MEDICARE, BC, OTHER ==
[~2022-04-09] MED LIST changes: -ALBUTEROL SULFATE 2.5 MG/0.5 ML INH NEB SOLN INH PRN; -EPINEPHrine INJ 1 MG/ML 1ML AMP IM PRN; -diphenhydrAMINE 50MG/ML VIAL (J1200) IV PRN; -methylPREDNISolone 125MG 2ML VIAL IV PRN
== END ==
LOC: M LAB 09:41
PROVIDERS: ATTEND Orthopaedic Surgery
DX: Z01.818 Encounter for other preprocedural examination (principal); M51.36 Other intervertebral disc degeneration, lumbar region; M48.061 Spinal stenosis, lumbar region without neurogenic claudication; M43.06 Spondylolysis, lumbar region
CPT/HCPCS: 36415; G0480

== ENCOUNTER 2022-04-10 09:15 | Outpatient (CLI) | payer MEDICARE, BC, OTHER ==
[~2022-04-10] VITALS: Ht 175.3 cm; Wt 110.0 kg
[~2022-04-10 09:15] MED LIST changes: -ALBUTEROL SULFATE 2.5 MG/0.5 ML INH NEB SOLN INH PRN; -EPINEPHrine INJ 1 MG/ML 1ML AMP IM PRN; -diphenhydrAMINE 50MG/ML VIAL (J1200) IV PRN; -methylPREDNISolone 125MG 2ML VIAL IV PRN
[2022-04-10 09:30] VITALS: BP 134/62
[2022-04-10] MEDS ORDERED: NS 1,000 ML IV SCH (09:30)
[2022-04-10] MEDS ORDERED: IMMUNE GLOBULIN 10% 40 GM in IV 1 EA IV ONE (09:30)
[2022-04-10] MEDS ORDERED: IMMUNE GLOBULIN 10% 10 GM in IV 1 EA IV ONE (09:30)
[2022-04-10] MEDS ORDERED: ACETAMINOPHEN TAB 650MG DOSE (2X325MG) PO ONE (09:30)
[2022-04-10] MEDS ORDERED: diphenhydrAMINE 25MG CAP PO ONE (09:30)
[2022-04-10 10:30] VITALS: BP 133/72
[2022-04-10 11:00] VITALS: BP 148/73
[2022-04-10 12:25] VITALS: BP 168/72
== END 2022-04-10 12:30 | disposition home or self-care (01) ==
LOC: M INFU 09:15
PROVIDERS: ATTEND Psychiatry & Neurology Neurology
DX: G61.81 Chronic inflammatory demyelinating polyneuritis (principal); Z91.041 Radiographic dye allergy status
CPT/HCPCS: 96365; 96366; J1459

== ENCOUNTER 2022-05-07 09:45 | Outpatient (CLI) | payer MEDICARE, BC, OTHER ==
[~2022-05-07] VITALS: Ht 180.3 cm; Wt 102.0 kg
[2022-05-07 09:45] VITALS: BP 140/63
[~2022-05-07 09:45] MED LIST changes: +ALBUTEROL SULFATE 2.5 MG/0.5 ML INH NEB SOLN INH PRN; +EPINEPHrine INJ 1 MG/ML 1ML AMP IM PRN; +diphenhydrAMINE 50MG/ML VIAL (J1200) IV PRN; +methylPREDNISolone 125MG 2ML VIAL IV PRN
[2022-05-07] MEDS ORDERED: ACETAMINOPHEN TAB 650MG DOSE (2X325MG) PO ONE (10:00)
[2022-05-07] MEDS ORDERED: IMMUNE GLOBULIN 10% 40 GM in IV 1 EA IV ONE (10:00)
[2022-05-07] MEDS ORDERED: NS 1,000 ML IV SCH (10:00)
[2022-05-07] MEDS ORDERED: diphenhydrAMINE 25MG CAP PO ONE (10:00)
[2022-05-07] MEDS ORDERED: IMMUNE GLOBULIN 10% 10 GM in IV 1 EA IV ONE (10:00)
[2022-05-07 10:45] VITALS: BP 151/74
[2022-05-07 11:15] VITALS: BP 183/86
[2022-05-07 12:15] VITALS: BP 170/76
[2022-05-07 13:00] VITALS: BP 124/70
[2022-05-07 13:27] VITALS: BP 142/65
== END 2022-05-07 13:30 | disposition home or self-care (01) ==
LOC: M INFU 09:45
PROVIDERS: ATTEND Psychiatry & Neurology Neurology
DX: G61.81 Chronic inflammatory demyelinating polyneuritis (principal)
CPT/HCPCS: 96365; 96366; J1459

== ENCOUNTER 2022-05-08 09:40 | Outpatient (CLI) | payer MEDICARE, BC, OTHER ==
[~2022-05-08 09:40] MED LIST changes: -ALBUTEROL SULFATE 2.5 MG/0.5 ML INH NEB SOLN INH PRN
[2022-05-08 09:45] VITALS: BP 116/69
[2022-05-08] MEDS ORDERED: diphenhydrAMINE 25MG CAP PO ONE (10:00)
[2022-05-08] MEDS ORDERED: IMMUNE GLOBULIN 10% 10 GM in IV 1 EA IV ONE (10:00)
[2022-05-08] MEDS ORDERED: IMMUNE GLOBULIN 10% 40 GM in IV 1 EA IV ONE (10:00)
[2022-05-08] MEDS ORDERED: NS 1,000 ML IV SCH (10:00)
[2022-05-08] MEDS ORDERED: ACETAMINOPHEN TAB 650MG DOSE (2X325MG) PO ONE (10:00)
[2022-05-08 10:55] VITALS: BP 148/70
[2022-05-08 11:25] VITALS: BP 157/74
[2022-05-08 13:10] VITALS: BP 167/84
== END 2022-05-08 13:15 | disposition home or self-care (01) ==
LOC: M INFU 09:40
PROVIDERS: ATTEND Psychiatry & Neurology Neurology
DX: G61.81 Chronic inflammatory demyelinating polyneuritis (principal); Z91.041 Radiographic dye allergy status
CPT/HCPCS: 96365; 96366; J1459

== ENCOUNTER → 2022-05-14 | Outpatient (REF) | payer MEDICARE, BC, OTHER ==
[~2022-05-14] MED LIST changes: -EPINEPHrine INJ 1 MG/ML 1ML AMP IM PRN; -diphenhydrAMINE 50MG/ML VIAL (J1200) IV PRN; -methylPREDNISolone 125MG 2ML VIAL IV PRN
[2022-05-14 14:18] LABS: TOTAL VOLUME, URINE 800 ML
[2022-05-14 14:27] LABS: TOTAL PROTEIN 24 HOUR URINE 215.2 MG/24HR (50-150); URINE TOTAL PROTEIN 26.9 MG/DL (0-12)
== END ==
LOC: M LAB REF 12:28
PROVIDERS: ATTEND Internal Medicine Hematology
DX: R76.8 Other specified abnormal immunological findings in serum (principal)

== ENCOUNTER → 2022-05-20 | Outpatient (CLI) | payer MEDICARE, BC, OTHER ==
[2022-05-20 15:40] LABS: BASO # 0.1 10^3/uL (0.0-0.2); BASO % 0.8 % (0.0-1.0); EOS # 0.5 10^3/uL (0.0-0.5); EOS % 7.2 % (0.0-3.0); HEMATOCRIT 35.8 % (42.0-52.0); HEMATOCRIT 36.8 % (42.0-52.0); HEMOGLOBIN 12.3 g/dl (13.5-17.5); LYMPH # 1.9 10^3/uL (1.5-5.0); LYMPH % 26.8 % (24.0-44.0); MEAN CORPUSCULAR HEMOGLOBIN 32.4 pg (27.0-33.0); MEAN CORPUSCULAR HGB CONC 33.4 g/dl (32.0-36.5); MEAN CORPUSCULAR VOLUME 96.8 fl (80.0-96.0); MONO # 0.7 10^3/uL (0.0-0.8); MONO % 9.5 % (2.0-8.0); NEUTROPHILS % 55.4 % (36.0-66.0); PLATELET COUNT, AUTOMATED 154 10^3/uL (150-450); WHITE BLOOD COUNT 7.2 10^3/uL (4.0-10.0)
[2022-05-20 16:38] LABS: ALBUMIN 3.4 GM/DL (3.2-5.2); BILIRUBIN,TOTAL 0.3 MG/DL (0.2-1.0); C REACTIVE PROTEIN QUANTITATIV 0.3 MG/DL (0.00-0.30); CALCIUM LEVEL 9.4 MG/DL (8.8-10.2); CREATININE FOR GFR 1.78 MG/DL (0.70-1.30); GLOMERULAR FILTRATION RATE 39.8 (>42); POTASSIUM SERUM 4.2 MEQ/L (3.5-5.1); TOTAL PROTEIN 8.3 GM/DL (6.4-8.2)
[2022-05-20 18:10] LABS: PTH INTACT 31.2 PG/ML (18.5-88.0)
== END ==
LOC: M LAB 14:55
PROVIDERS: ATTEND Family Medicine
DX: E78.2 Mixed hyperlipidemia (principal); E53.8 Deficiency of other specified B group vitamins; E21.5 Disorder of parathyroid gland, unspecified; D50.9 Iron deficiency anemia, unspecified

== ENCOUNTER → 2022-06-27 | Outpatient (CLI) | payer MEDICARE, BC, OTHER ==
[~2022-06-27] MED LIST changes: -DOXY-350 PO; +DOXY-444 PO
[2022-06-27 18:19] LABS: BASO # 0.1 10^3/uL (0.0-0.2); BASO % 0.8 % (0.0-1.0); EOS # 0.5 10^3/uL (0.0-0.5); EOS % 6.8 % (0.0-3.0); HEMATOCRIT 40.8 % (42.0-52.0); HEMOGLOBIN 13.5 g/dl (13.5-17.5); LYMPH # 2.2 10^3/uL (1.5-5.0); LYMPH % 28.7 % (24.0-44.0); MEAN CORPUSCULAR HEMOGLOBIN 32.8 pg (27.0-33.0); MEAN CORPUSCULAR HGB CONC 33.1 g/dl (32.0-36.5); MONO # 0.9 10^3/uL (0.0-0.8); MONO % 11.3 % (2.0-8.0); NEUTROPHILS # 3.9 10^3/uL (1.5-8.5); NEUTROPHILS % 51.9 % (36.0-66.0); PLATELET COUNT, AUTOMATED 198 10^3/uL (150-450); RED BLOOD COUNT 4.12 10^6/uL (4.30-6.10); WHITE BLOOD COUNT 7.5 10^3/uL (4.0-10.0)
[2022-06-27 18:24] LABS: INR 1.01; PROTHROMBIN TIME 13.5 SECONDS (12.5-14.5)
[2022-06-27 19:19] LABS: MAGNESIUM LEVEL 2.2 MG/DL (1.8-2.4)
[2022-06-27 19:20] LABS: ALBUMIN 4.1 G/DL (3.2-5.2); BILIRUBIN,TOTAL 0.4 MG/DL (0.3-1.2); CALCIUM LEVEL 10.2 MG/DL (8.3-10.6); CREATININE FOR GFR 1.67 MG/DL (0.70-1.30); FERRITIN 41.7 NG/ML (10.5-307.3); GLOMERULAR FILTRATION RATE 42.8 (>42); POTASSIUM SERUM 4.6 MMOL/L (3.5-5.1); TOTAL PROTEIN 7.9 G/DL (5.7-8.2)
== END ==
LOC: M PLALAB 16:05
PROVIDERS: ATTEND Family Medicine
DX: I48.0 Paroxysmal atrial fibrillation (principal)

== ENCOUNTER → 2022-07-29 | Outpatient (CLI) | payer MEDICARE, BC, OTHER ==
[2022-07-29 14:14] LABS: BASO # 0.1 10^3/uL (0.0-0.2); BASO % 0.8 % (0.0-1.0); EOS # 0.4 10^3/uL (0.0-0.5); EOS % 4.3 % (0.0-3.0); HEMATOCRIT 37.7 % (42.0-52.0); LYMPH # 2.4 10^3/uL (1.5-5.0); LYMPH % 23.3 % (24.0-44.0); MEAN CORPUSCULAR HEMOGLOBIN 31.7 pg (27.0-33.0); MEAN CORPUSCULAR HGB CONC 31.8 g/dl (32.0-36.5); MEAN CORPUSCULAR VOLUME 99.7 fl (80.0-96.0); MONO # 0.9 10^3/uL (0.0-0.8); MONO % 9.2 % (2.0-8.0); NEUTROPHILS # 6.3 10^3/uL (1.5-8.5); PLATELET COUNT, AUTOMATED 412 10^3/uL (150-450); RED BLOOD COUNT 3.78 10^6/uL (4.30-6.10); WHITE BLOOD COUNT 10.1 10^3/uL (4.0-10.0)
[2022-07-29 14:47] LABS: MAGNESIUM LEVEL 2.2 MG/DL (1.8-2.4)
[2022-07-29 14:48] LABS: ALBUMIN 3.6 G/DL (3.2-5.2); BILIRUBIN,TOTAL 0.3 MG/DL (0.3-1.2); CALCIUM LEVEL 10.3 MG/DL (8.3-10.6); CREATININE FOR GFR 1.49 MG/DL (0.70-1.30); GLOMERULAR FILTRATION RATE 48.8 (>42); POTASSIUM SERUM 5.2 MMOL/L (3.5-5.1); TOTAL PROTEIN 7.8 G/DL (5.7-8.2)
== END ==
LOC: M PLALAB 10:52
PROVIDERS: ATTEND Family Medicine
DX: I48.0 Paroxysmal atrial fibrillation (principal)

== ENCOUNTER → 2022-09-02 | Outpatient (CLI) | payer MEDICARE, BC, OTHER ==
[2022-09-02 16:40] LABS: PTH INTACT 42.6 PG/ML (18.5-88.0)
[2022-09-02 16:41] LABS: ALBUMIN 3.7 G/DL (3.2-5.2); BILIRUBIN,TOTAL 0.5 MG/DL (0.3-1.2); CALCIUM LEVEL 9.5 MG/DL (8.3-10.6); CREATININE FOR GFR 1.45 MG/DL (0.70-1.30); GLOMERULAR FILTRATION RATE 50.4 (>42); POTASSIUM SERUM 4.7 MMOL/L (3.5-5.1); TOTAL PROTEIN 7.4 G/DL (5.7-8.2)
[2022-09-02 16:44] LABS: BASO % 0.6 % (0.0-1.0); EOS # 0.4 10^3/uL (0.0-0.5); EOS % 6.1 % (0.0-3.0); HEMATOCRIT 36.9 % (42.0-52.0); HEMOGLOBIN 12.1 g/dl (13.5-17.5); LYMPH # 1.8 10^3/uL (1.5-5.0); LYMPH % 26.2 % (24.0-44.0); MEAN CORPUSCULAR HEMOGLOBIN 32.4 pg (27.0-33.0); MEAN CORPUSCULAR HGB CONC 32.8 g/dl (32.0-36.5); MEAN CORPUSCULAR VOLUME 98.9 fl (80.0-96.0); MONO # 0.7 10^3/uL (0.0-0.8); MONO % 10.5 % (2.0-8.0); NEUTROPHILS # 3.8 10^3/uL (1.5-8.5); PLATELET COUNT, AUTOMATED 219 10^3/uL (150-450); RED BLOOD COUNT 3.73 10^6/uL (4.30-6.10); WHITE BLOOD COUNT 6.8 10^3/uL (4.0-10.0)
[2022-09-02 16:45] LABS: THYROID STIMULATING HORMONE 4.489 uIU/ML (0.55-4.78)
[2022-09-04 17:08] LABS: FREE KAPPA LIGHT CHAINS SERUM 64.9 mg/L (3.3-19.4); FREE LAMBDA LIGHT CHAINS SERUM 26.1 mg/L (5.7-26.3); KAPPA/LAMBDA RATIO SERUM 2.49 (0.26-1.65)
== END ==
LOC: M PLALAB 10:12
PROVIDERS: ATTEND Family Medicine
DX: D47.2 Monoclonal gammopathy (principal); E03.9 Hypothyroidism, unspecified; E55.9 Vitamin D deficiency, unspecified; Z79.899 Other long term (current) drug therapy

== ENCOUNTER → 2022-12-11 | Outpatient (CLI) | payer MEDICARE, BC, OTHER ==
[2022-12-11 15:58] LABS: BASO % 0.5 % (0.0-1.0); EOS # 0.8 10^3/uL (0.0-0.5); EOS % 8.8 % (0.0-3.0); HEMATOCRIT 38.4 % (42.0-52.0); HEMOGLOBIN 12.8 g/dl (13.5-17.5); LYMPH % 22.3 % (24.0-44.0); MEAN CORPUSCULAR HEMOGLOBIN 32.2 pg (27.0-33.0); MEAN CORPUSCULAR HGB CONC 33.3 g/dl (32.0-36.5); MEAN CORPUSCULAR VOLUME 96.5 fl (80.0-96.0); MONO % 11.1 % (2.0-8.0); NEUTROPHILS % 56.5 % (36.0-66.0); PLATELET COUNT, AUTOMATED 186 10^3/uL (150-450); RED BLOOD COUNT 3.98 10^6/uL (4.30-6.10); WHITE BLOOD COUNT 8.9 10^3/uL (4.0-10.0)
[2022-12-11 16:29] LABS: ALBUMIN 3.3 G/DL (3.2-5.2); BILIRUBIN,TOTAL 0.4 MG/DL (0.3-1.2); CALCIUM LEVEL 8.8 MG/DL (8.3-10.6); CREATININE FOR GFR 1.42 MG/DL (0.70-1.30); GLOMERULAR FILTRATION RATE 51.6 (>42); POTASSIUM SERUM 4.5 MMOL/L (3.5-5.1); TOTAL PROTEIN 6.8 G/DL (5.7-8.2)
[2022-12-11 16:30] LABS: IMMUNOGLOBULIN A 144.7 MG/DL (40-350)
[2022-12-11 16:50] LABS: IMMUNOGLOBULIN M 822.5 MG/DL (50-300)
[2022-12-13 17:11] LABS: FREE KAPPA LIGHT CHAINS SERUM 55.8 mg/L (3.3-19.4); KAPPA/LAMBDA RATIO SERUM 2.33 (0.26-1.65)
== END ==
LOC: M LAB 14:07
DX: D47.2 Monoclonal gammopathy (principal)

== ENCOUNTER → 2023-01-05 | Outpatient (REF) | payer MEDICARE, BC, OTHER ==
[~2023-01-05] MED LIST changes: +CYAN-1 PO; -CYAN100050 PO
== END ==
LOC: M LAB REF 18:36
PROVIDERS: ATTEND Internal Medicine Nephrology
DX: N40.1 Benign prostatic hyperplasia with lower urinary tract symptoms (principal)

== ENCOUNTER → 2023-01-13 | Outpatient (CLI) | payer MEDICARE, BC, OTHER | LOC: M PLAIMG 12:49 | PROVIDERS: ATTEND Family Medicine | DX: R91.1 Solitary pulmonary nodule (principal) ==

== ENCOUNTER → 2023-01-21 | Outpatient (CLI) | payer MEDICARE, BC, OTHER | LOC: M RAD 14:01 | PROVIDERS: ATTEND Internal Medicine Nephrology | DX: N40.1 Benign prostatic hyperplasia with lower urinary tract symptoms (principal); N28.1 Cyst of kidney, acquired ==

== ENCOUNTER → 2023-02-06 | Outpatient (CLI) | payer MEDICARE, BC, OTHER ==
[2023-02-06 13:24] LABS: BASO # 0.1 10^3/uL (0.0-0.2); BASO % 0.7 % (0.0-1.0); EOS # 0.7 10^3/uL (0.0-0.5); HEMATOCRIT 38.6 % (42.0-52.0); HEMOGLOBIN 12.5 g/dl (13.5-17.5); LYMPH # 1.9 10^3/uL (1.5-5.0); LYMPH % 24.3 % (24.0-44.0); MEAN CORPUSCULAR HEMOGLOBIN 32.1 pg (27.0-33.0); MEAN CORPUSCULAR HGB CONC 32.4 g/dl (32.0-36.5); MEAN CORPUSCULAR VOLUME 99.2 fl (80.0-96.0); MONO # 0.8 10^3/uL (0.0-0.8); MONO % 9.9 % (2.0-8.0); NEUTROPHILS # 4.3 10^3/uL (1.5-8.5); NEUTROPHILS % 55.7 % (36.0-66.0); PLATELET COUNT, AUTOMATED 212 10^3/uL (150-450); RED BLOOD COUNT 3.89 10^6/uL (4.30-6.10); WHITE BLOOD COUNT 7.7 10^3/uL (4.0-10.0)
[2023-02-06 14:08] LABS: ALBUMIN 3.6 G/DL (3.2-5.2); ALKALINE PHOSPHATASE 98 U/L (46-116); ALT/SGPT 41 U/L (7.0-40); AST/SGOT 38 U/L (<34); BILIRUBIN,TOTAL 0.5 MG/DL (0.3-1.2); BLOOD UREA NITROGEN 17 MG/DL (9-23); CALCIUM LEVEL 9.8 MG/DL (8.3-10.6); CARBON DIOXIDE LEVEL 28 MMOL/L (20-31); CHLORIDE LEVEL 106 MMOL/L (98-107); CREATININE FOR GFR 1.41 MG/DL (0.70-1.30); FREE T4 1.02 NG/DL (0.89-1.76); GLOMERULAR FILTRATION RATE 51.9 (>42); GLUCOSE, FASTING 100 MG/DL (74-106); POTASSIUM SERUM 4.9 MMOL/L (3.5-5.1); SODIUM LEVEL 141 MMOL/L (136-145); THYROGLOBULIN ANTIBODY < 15.0 U/ML (<60.0); THYROID PEROXIDASE ANTIBODY < 28.0 U/ML (<60.0); THYROID STIMULATING HORMONE 3.316 uIU/ML (0.55-4.78); TOTAL PROTEIN 7.2 G/DL (5.7-8.2)
[2023-02-09 17:07] LABS: FREE KAPPA LIGHT CHAINS SERUM 64.7 mg/L (3.3-19.4); FREE LAMBDA LIGHT CHAINS SERUM 23.9 mg/L (5.7-26.3); KAPPA/LAMBDA RATIO SERUM 2.71 (0.26-1.65); SOLUBLE TRANSFERRIN RECEPTOR 30.8 nmol/L (12.2-27.3)
== END ==
LOC: M LAB 12:25
PROVIDERS: ATTEND Family Medicine
DX: I48.0 Paroxysmal atrial fibrillation (principal); Z12.5 Encounter for screening for malignant neoplasm of prostate
CPT/HCPCS: 36415; 80053; 83520; 83521; 83880; 84439; 84443; 85025; 85046; 86376; 86800; G0103

== ENCOUNTER → 2023-03-10 | Outpatient (CLI) | payer MEDICARE, BC, OTHER | LOC: M SLEEP HO 10:55 | PROVIDERS: ATTEND Family Medicine | DX: G47.33 Obstructive sleep apnea (adult) (pediatric) (principal) ==

== ENCOUNTER → 2023-03-17 | Outpatient (CLI) | payer MEDICARE, BC, OTHER ==
[2023-03-17 10:58] LABS: BASO % 0.6 % (0.0-1.0); EOS # 0.6 10^3/uL (0.0-0.5); HEMATOCRIT 38.8 % (42.0-52.0); HEMOGLOBIN 12.6 g/dl (13.5-17.5); LYMPH # 1.6 10^3/uL (1.5-5.0); LYMPH % 25.4 % (24.0-44.0); MEAN CORPUSCULAR HEMOGLOBIN 31.8 pg (27.0-33.0); MEAN CORPUSCULAR HGB CONC 32.5 g/dl (32.0-36.5); MONO # 0.5 10^3/uL (0.0-0.8); MONO % 8.5 % (2.0-8.0); NEUTROPHILS # 3.5 10^3/uL (1.5-8.5); PLATELET COUNT, AUTOMATED 169 10^3/uL (150-450); RED BLOOD COUNT 3.96 10^6/uL (4.30-6.10); WHITE BLOOD COUNT 6.2 10^3/uL (4.0-10.0)
[2023-03-17 11:21] LABS: ALBUMIN 3.6 G/DL (3.2-5.2); BILIRUBIN,TOTAL 0.4 MG/DL (0.3-1.2); CALCIUM LEVEL 9.6 MG/DL (8.3-10.6); CREATININE FOR GFR 1.56 MG/DL (0.70-1.30); GLOMERULAR FILTRATION RATE 46.2 (>42); POTASSIUM SERUM 4.4 MMOL/L (3.5-5.1)
== END ==
LOC: M LAB 10:27
PROVIDERS: ATTEND Internal Medicine Interventional Cardiology
DX: G47.33 Obstructive sleep apnea (adult) (pediatric) (principal); N18.32 Chronic kidney disease, stage 3b; I46.9 Cardiac arrest, cause unspecified; E78.5 Hyperlipidemia, unspecified; I48.0 Paroxysmal atrial fibrillation

== ENCOUNTER → 2023-03-25 | Outpatient (CLI) | payer MEDICARE, BC, OTHER ==
[2023-03-25 15:03] LABS: CREATININE FOR GFR 1.55 MG/DL (0.70-1.30); GLOMERULAR FILTRATION RATE 46.5 (>42)
== END ==
LOC: M LAB 14:04
PROVIDERS: ATTEND Internal Medicine Interventional Cardiology
DX: I48.0 Paroxysmal atrial fibrillation (principal)

== ENCOUNTER → 2023-04-14 | Outpatient (CLI) | payer MEDICARE, BC, OTHER ==
[~2023-04-14] MED LIST changes: -PREG50CA2 PO; +PREG50CA3 PO
== END ==
LOC: M RAD 13:24
PROVIDERS: ATTEND Physician Assistant
DX: I73.9 Peripheral vascular disease, unspecified (principal)

== ENCOUNTER → 2023-05-12 | Outpatient (CLI) | payer MEDICARE, BC, OTHER ==
[2023-05-12 14:13] LABS: BASO # 0.1 10^3/uL (0.0-0.2); BASO % 0.5 % (0.0-1.0); EOS # 0.6 10^3/uL (0.0-0.5); EOS % 5.6 % (0.0-3.0); HEMATOCRIT 38.6 % (42.0-52.0); HEMOGLOBIN 12.8 g/dl (13.5-17.5); LYMPH # 2.2 10^3/uL (1.5-5.0); LYMPH % 21.8 % (24.0-44.0); MEAN CORPUSCULAR HEMOGLOBIN 32.6 pg (27.0-33.0); MEAN CORPUSCULAR HGB CONC 33.2 g/dl (32.0-36.5); MEAN CORPUSCULAR VOLUME 98.2 fl (80.0-96.0); MONO % 10.3 % (2.0-8.0); NEUTROPHILS # 6.1 10^3/uL (1.5-8.5); NEUTROPHILS % 61.3 % (36.0-66.0); PLATELET COUNT, AUTOMATED 202 10^3/uL (150-450); RED BLOOD COUNT 3.93 10^6/uL (4.30-6.10)
[2023-05-12 14:35] LABS: ALBUMIN 3.7 G/DL (3.2-5.2); BILIRUBIN,TOTAL 0.3 MG/DL (0.3-1.2); CALCIUM LEVEL 9.7 MG/DL (8.3-10.6); CREATININE FOR GFR 1.44 MG/DL (0.70-1.30); GLOMERULAR FILTRATION RATE 50.6 (>42); IMMUNOGLOBULIN A 154.3 MG/DL (40-350); POTASSIUM SERUM 4.5 MMOL/L (3.5-5.1); TOTAL PROTEIN 7.4 G/DL (5.7-8.2)
== END ==
LOC: M LAB 13:23
PROVIDERS: ATTEND Nurse Practitioner Family
DX: D47.2 Monoclonal gammopathy (principal)

== ENCOUNTER → 2023-05-22 | Outpatient (CLI) | payer MEDICARE, BC, OTHER ==
[2023-05-22 12:18] LABS: PTH INTACT 43.6 PG/ML (18.5-88.0)
[2023-05-22 12:22] LABS: FERRITIN 39.9 NG/ML (10.5-307.3); TOTAL 25(OH) VITAMIN D 26.9 NG/ML (20.0-100.0)
[2023-05-26 15:07] LABS: IMMUNOTYPING SERUM IGA SO 161 mg/dL (61-437); IMMUNOTYPING SERUM IGM SO 1230 mg/dL (15-143); SOLUBLE TRANSFERRIN RECEPTOR 32.2 nmol/L (12.2-27.3)
== END ==
LOC: M LAB 10:57
PROVIDERS: ATTEND Family Medicine
DX: K76.0 Fatty (change of) liver, not elsewhere classified (principal); D75.89 Other specified diseases of blood and blood-forming organs; D47.2 Monoclonal gammopathy; D50.9 Iron deficiency anemia, unspecified; E55.9 Vitamin D deficiency, unspecified; Z79.899 Other long term (current) drug therapy

== ENCOUNTER → 2023-05-26 | Outpatient (CLI) | payer MEDICARE, BC, OTHER ==
[2023-05-28 06:44] LABS: JAK2 MUTATIONS FOR PATH SENDOU See Pathology Report
[2023-05-28 16:08] LABS: IMMUNOTYPING SERUM IGA SO 150 mg/dL (61-437); IMMUNOTYPING SERUM IGM SO 1120 mg/dL (15-143)
== END ==
LOC: M LAB 11:21
PROVIDERS: ATTEND Family Medicine
DX: D47.2 Monoclonal gammopathy (principal); D64.9 Anemia, unspecified

== ENCOUNTER → 2023-11-25 | Outpatient (CLI) | payer MEDICARE, BC ==
[~2023-11-25] MED LIST changes: -ASPI-161 PO; +ASPI-615 PO; +DOXY-440 PO; -DOXY-444 PO; -ROSU10TA6; -ROSU10TA6 PO; +ROSU10TA61; +ROSU10TA61 PO
[2023-11-25 15:31] LABS: BASO # 0.1 10^3/uL (0.0-0.2); BASO % 0.7 % (0.0-1.0); EOS # 0.7 10^3/uL (0.0-0.5); EOS % 7.4 % (0.0-3.0); HEMATOCRIT 38.1 % (42.0-52.0); HEMOGLOBIN 13.1 g/dl (13.5-17.5); LYMPH # 2.4 10^3/uL (1.5-5.0); LYMPH % 26.6 % (24.0-44.0); MEAN CORPUSCULAR HEMOGLOBIN 33.8 pg (27.0-33.0); MEAN CORPUSCULAR HGB CONC 34.4 g/dl (32.0-36.5); MEAN CORPUSCULAR VOLUME 98.2 fl (80.0-96.0); MONO # 0.9 10^3/uL (0.0-0.8); MONO % 10.4 % (2.0-8.0); NEUTROPHILS # 4.8 10^3/uL (1.5-8.5); NEUTROPHILS % 54.4 % (36.0-66.0); PLATELET COUNT, AUTOMATED 188 10^3/uL (150-450); RED BLOOD COUNT 3.88 10^6/uL (4.30-6.10); WHITE BLOOD COUNT 8.8 10^3/uL (4.0-10.0)
[2023-11-25 15:48] LABS: INR 1.01; PARTIAL THROMBOPLASTIN TIME 32.3 SECONDS (24.8-34.2)
[2023-11-25 15:52] LABS: ALBUMIN 3.7 G/DL (3.2-5.2); BILIRUBIN,TOTAL 0.5 MG/DL (0.3-1.2); CALCIUM LEVEL 9.5 MG/DL (8.3-10.6); CHOLESTEROL RISK RATIO 3.94 (<5); CREATININE FOR GFR 1.47 MG/DL (0.70-1.30); GLOMERULAR FILTRATION RATE 49.5 (>42); HDL CHOLESTEROL 34.7 MG/DL (>40); LDL CHOLESTEROL 62.7 MG/DL (<100); NON-HDL-C 102.3 MG/DL; POTASSIUM SERUM 4.4 MMOL/L (3.5-5.1)
[2023-11-25 15:53] LABS: FREE T4 0.96 NG/DL (0.89-1.76)
[2023-11-25 15:54] LABS: FERRITIN 67.3 NG/ML (10.5-307.3); THYROID STIMULATING HORMONE 3.679 uIU/ML (0.55-4.78)
== END ==
LOC: M PLALAB 13:19
PROVIDERS: ATTEND Family Medicine
DX: E03.9 Hypothyroidism, unspecified (principal); E78.2 Mixed hyperlipidemia; K76.0 Fatty (change of) liver, not elsewhere classified

== ENCOUNTER → 2023-11-25 | Outpatient (CLI) | payer MEDICARE, BC ==
[~2023-11-25] MED LIST changes: +READI-CAT 2 As Ordered ONE
== END ==
LOC: M RAD 11:30
PROVIDERS: ATTEND Internal Medicine Hematology & Oncology
DX: R91.8 Other nonspecific abnormal finding of lung field (principal); N28.1 Cyst of kidney, acquired; R16.0 Hepatomegaly, not elsewhere classified; D47.2 Monoclonal gammopathy; E03.9 Hypothyroidism, unspecified; E78.2 Mixed hyperlipidemia; K76.0 Fatty (change of) liver, not elsewhere classified

== ENCOUNTER → 2023-11-26 | Outpatient (REF) | payer MEDICARE, BC ==
[~2023-11-26] MED LIST changes: +PREG50CA3; -READI-CAT 2 As Ordered ONE
== END ==
LOC: M SFHCPLAZ 18:13
PROVIDERS: ATTEND Family Medicine
DX: E78.2 Mixed hyperlipidemia (principal); D50.9 Iron deficiency anemia, unspecified; K74.00 Hepatic fibrosis, unspecified; E53.8 Deficiency of other specified B group vitamins

== ENCOUNTER → 2023-12-16 | Outpatient (CLI) | payer MEDICARE, BC | LOC: M RAD 09:16 | PROVIDERS: ATTEND Family Medicine | DX: K74.00 Hepatic fibrosis, unspecified (principal); K76.0 Fatty (change of) liver, not elsewhere classified; N28.1 Cyst of kidney, acquired ==

== ENCOUNTER → 2024-03-08 | Outpatient (CLI) | payer MEDICARE, BC ==
[2024-03-08 13:48] LABS: HEMATOCRIT 38.7 % (42.0-52.0); MEAN CORPUSCULAR HEMOGLOBIN 33.2 pg (27.0-33.0); MEAN CORPUSCULAR HGB CONC 33.6 g/dl (32.0-36.5); PLATELET COUNT, AUTOMATED 236 10^3/uL (150-450); RED BLOOD COUNT 3.91 10^6/uL (4.30-6.10); WHITE BLOOD COUNT 8.7 10^3/uL (4.0-10.0)
[2024-03-08 14:14] LABS: CALCIUM LEVEL 10.1 MG/DL (8.3-10.6); CREATININE FOR GFR 1.73 MG/DL (0.70-1.30); GLOMERULAR FILTRATION RATE 40.9 (>42); MAGNESIUM LEVEL 2.2 MG/DL (1.8-2.4); POTASSIUM SERUM 4.8 MMOL/L (3.5-5.1)
== END ==
LOC: M PLALAB 11:17
DX: R19.7 Diarrhea, unspecified (principal)

== ENCOUNTER → 2024-04-26 | Outpatient (CLI) | payer MEDICARE, BC ==
[~2024-04-26] MED LIST changes: -MULT200T7 PO; +MULT200T9 PO
[2024-04-26 13:35] LABS: ALBUMIN 3.8 G/DL (3.2-5.2); ALKALINE PHOSPHATASE 96 U/L (46-116); ALT/SGPT 38 U/L (7.0-40); AST/SGOT 36 U/L (<34); BILIRUBIN,TOTAL 0.3 MG/DL (0.3-1.2); BLOOD UREA NITROGEN 19 MG/DL (9-23); CALCIUM LEVEL 10.4 MG/DL (8.3-10.6); CARBON DIOXIDE LEVEL 28 MMOL/L (20-31); CHLORIDE LEVEL 109 MMOL/L (98-107); CREATININE FOR GFR 1.42 MG/DL (0.70-1.30); GLOMERULAR FILTRATION RATE 51.3 (>42); GLUCOSE, FASTING 100 MG/DL (74-106); POTASSIUM SERUM 4.4 MMOL/L (3.5-5.1); SODIUM LEVEL 142 MMOL/L (136-145); TOTAL PROTEIN 7.5 G/DL (5.7-8.2)
[2024-04-26 13:36] LABS: FERRITIN 44.3 NG/ML (10.5-307.3); VITAMIN B12 LEVEL 850 PG/ML (211-911)
[2024-04-26 13:47] LABS: HEPATITIS B SURFACE ANTIGEN NEGATIVE (NEGATIVE)
[2024-04-26 13:50] LABS: BASO % 0.6 % (0.0-1.0); EOS # 0.4 10^3/uL (0.0-0.5); EOS % 6.4 % (0.0-3.0); HEMATOCRIT 38.5 % (42.0-52.0); HEMOGLOBIN 12.9 g/dl (13.5-17.5); LYMPH # 1.7 10^3/uL (1.5-5.0); LYMPH % 25.5 % (24.0-44.0); MEAN CORPUSCULAR HEMOGLOBIN 33.1 pg (27.0-33.0); MEAN CORPUSCULAR HGB CONC 33.5 g/dl (32.0-36.5); MEAN CORPUSCULAR VOLUME 98.7 fl (80.0-96.0); MONO # 0.6 10^3/uL (0.0-0.8); MONO % 9.2 % (2.0-8.0); PLATELET COUNT, AUTOMATED 206 10^3/uL (150-450); WHITE BLOOD COUNT 6.8 10^3/uL (4.0-10.0)
[2024-04-26 13:50] LABS: HEMATOCRIT 37.6 % (42.0-52.0)
[2024-04-26 14:09] LABS: HEPATITIS C VIRUS ABY INDEX 0.04 INDEX (<0.8)
[2024-04-28 11:57] LABS: ANA SCREEN, IFA NEGATIVE (NEGATIVE)
[2024-04-28 14:47] LABS: ANTI-MITOCHONDRIAL ANTIBODY NEGATIVE (NEGATIVE)
[2024-05-03 16:37] LABS: SOLUBLE TRANSFERRIN RECEPTOR 2.15 mg/L (0.76-1.76)
== END ==
LOC: M PLALAB 10:38
PROVIDERS: ATTEND Family Medicine
DX: E78.2 Mixed hyperlipidemia (principal); D50.9 Iron deficiency anemia, unspecified; K74.00 Hepatic fibrosis, unspecified; E53.8 Deficiency of other specified B group vitamins; Z11.59 Encounter for screening for other viral diseases; Z72.89 Other problems related to lifestyle

== ENCOUNTER → 2024-10-31 | Outpatient (CLI) | payer MEDICARE, BC | LOC: M RAD 14:58 | PROVIDERS: ATTEND Chiropractor | DX: M99.03 Segmental and somatic dysfunction of lumbar region (principal); M51.360 Other intervertebral disc degeneration, lumbar region with discogenic back pain only; M99.02 Segmental and somatic dysfunction of thoracic region; M51.34 Other intervertebral disc degeneration, thoracic region; M99.01 Segmental and somatic dysfunction of cervical region; M50.33 Other cervical disc degeneration, cervicothoracic region; M47.816 Spondylosis without myelopathy or radiculopathy, lumbar region; M47.812 Spondylosis without myelopathy or radiculopathy, cervical region; M47.814 Spondylosis without myelopathy or radiculopathy, thoracic region ==

== ENCOUNTER → 2024-11-23 | Outpatient (CLI) | payer MEDICARE, BC ==
[2024-11-23 16:26] LABS: BASO # 0.1 10^3/uL (0.0-0.2); BASO % 0.7 % (0.0-1.0); EOS # 0.4 10^3/uL (0.0-0.5); HEMATOCRIT 37.5 % (42.0-52.0); HEMOGLOBIN 12.6 g/dl (13.5-17.5); LYMPH # 2.3 10^3/uL (1.5-5.0); LYMPH % 27.1 % (24.0-44.0); MEAN CORPUSCULAR HEMOGLOBIN 32.6 pg (27.0-33.0); MEAN CORPUSCULAR HGB CONC 33.6 g/dl (32.0-36.5); MEAN CORPUSCULAR VOLUME 97.2 fl (80.0-96.0); MONO # 0.9 10^3/uL (0.0-0.8); MONO % 9.9 % (2.0-8.0); NEUTROPHILS # 4.9 10^3/uL (1.5-8.5); NEUTROPHILS % 57.1 % (36.0-66.0); PLATELET COUNT, AUTOMATED 216 10^3/uL (150-450); RED BLOOD COUNT 3.86 10^6/uL (4.30-6.10); WHITE BLOOD COUNT 8.6 10^3/uL (4.0-10.0)
[2024-11-23 16:52] LABS: ALBUMIN 3.7 G/DL (3.2-5.2); BILIRUBIN,TOTAL 0.3 MG/DL (0.3-1.2); CALCIUM LEVEL 9.6 MG/DL (8.3-10.6); CHOLESTEROL RISK RATIO 4.4 (<5); CREATININE FOR GFR 1.53 MG/DL (0.70-1.30); GLOMERULAR FILTRATION RATE 46.3 (>42); LDL CHOLESTEROL 55.2 MG/DL (<100); POTASSIUM SERUM 4.7 MMOL/L (3.5-5.1); PSA SCREENING 0.16 NG/ML (< 4.00); TOTAL PROTEIN 7.3 G/DL (5.7-8.2)
[2024-11-23 16:54] LABS: PTH INTACT 57.9 PG/ML (18.5-88.0)
[2024-11-23 16:55] LABS: FREE T4 1.2 NG/DL (0.89-1.76)
[2024-11-23 16:56] LABS: FERRITIN 42.2 NG/ML (10.5-307.3); THYROID STIMULATING HORMONE 2.958 uIU/ML (0.55-4.78); TOTAL 25(OH) VITAMIN D 50.5 NG/ML (20.0-100.0)
[2024-11-25 08:13] LABS: PROTEIN, TOTAL SO 7.2 g/dL (6.1-8.1)
== END ==
LOC: M PLALAB 13:34
PROVIDERS: ATTEND Family Medicine
DX: E78.2 Mixed hyperlipidemia (principal); E53.8 Deficiency of other specified B group vitamins; D47.2 Monoclonal gammopathy; E21.5 Disorder of parathyroid gland, unspecified; Z12.5 Encounter for screening for malignant neoplasm of prostate; Z79.899 Other long term (current) drug therapy; D50.9 Iron deficiency anemia, unspecified
CPT/HCPCS: 36415; 80053; 80061; 82306; 82550; 82607; 82728; 83519; 83521; 83970; 84155; 84165; 84439; 84443; 85025; G0103

== ENCOUNTER → 2025-03-25 | Outpatient (CLI) | payer MEDICARE, BC ==
[~2025-03-25] MED LIST changes: +NIAC500T26 PO; -NIAC500T93 PO
== END ==
LOC: M RAD 15:13
PROVIDERS: ATTEND Anesthesiology Pain Medicine
DX: M54.14 Radiculopathy, thoracic region (principal)

== ENCOUNTER → 2025-05-01 | Outpatient (CLI) | payer MEDICARE, BC ==
[2025-05-01 13:48] LABS: BASO # 0.1 10^3/uL (0.0-0.2); BASO % 0.8 % (0.0-1.0); EOS # 0.5 10^3/uL (0.0-0.5); EOS % 5.9 % (0.0-3.0); LYMPH # 2.1 10^3/uL (1.5-5.0); LYMPH % 26.6 % (24.0-44.0); MONO # 0.8 10^3/uL (0.0-0.8); MONO % 10.3 % (2.0-8.0); NEUTROPHILS # 4.5 10^3/uL (1.5-8.5); NEUTROPHILS % 56.1 % (36.0-66.0); PLATELET COUNT, AUTOMATED 194 10^3/uL (150-450)
[2025-05-01 14:21] LABS: ALT/SGPT 30.0 U/L (7.0-40); AST/SGOT 32.0 U/L (<34); CALCIUM LEVEL 9.8 MG/DL (8.3-10.6); CARBON DIOXIDE LEVEL 27.0 MMOL/L (20-31); CHLORIDE LEVEL 108.0 MMOL/L (98-107); CREATININE FOR GFR 1.56 MG/DL (0.70-1.30); GLOMERULAR FILTRATION RATE 44.9 (>42); IRON (FE) 80.0 UG/DL (65-175); PERCENT SATURATION 25.5 % (19.7-50.0); POTASSIUM SERUM 4.9 MMOL/L (3.5-5.1); PTH INTACT 38.4 PG/ML (18.5-88.0); SODIUM LEVEL 143.0 MMOL/L (136-145)
[2025-05-01 14:23] LABS: VITAMIN B12 LEVEL 792.0 PG/ML (211-911)
[2025-05-01 14:24] LABS: TOTAL 25(OH) VITAMIN D 53.0 NG/ML (20.0-100.0)
[2025-05-02 11:13] LABS: PROTEIN, TOTAL SO 7.2 g/dL (6.1-8.1)
[2025-05-03 13:03] LABS: FREE KAPPA LIGHT CHAINS SERUM 61.5 mg/L (3.3-19.4); FREE LAMBDA LIGHT CHAINS SERUM 25.9 mg/L (5.7-26.3); KAPPA/LAMBDA RATIO SERUM 2.37 (0.26-1.65)
[2025-05-04 10:32] LABS: ALBUMIN SO 3.9 g/dL (3.8-4.8); ALPHA 1 GLOBULINS SO 0.3 g/dL (0.2-0.3); ALPHA 2 GLOBULINS SO 0.9 g/dL (0.5-0.9); BETA 2 GLOBULIN SO 0.3 g/dL (0.2-0.5); BETA GLOBULIN SO 0.4 g/dL (0.4-0.6); GAMMA GLOBULINS SO 1.4 g/dL (0.8-1.7)
[2025-05-08 14:07] LABS: FREE KAPPA LIGHT CHAINS URINE 111.53 mg/L (<=32.90); FREE LAMBDA LIGHT CHAINS URINE 17.22 mg/L (<=3.79); KAPPA/LAMBDA RATIO URINE 6.48 (<=8.69)
[2025-05-09 01:58] LABS: PTH RELATED PEPTIDE 15 pg/mL (11-20)
== END ==
LOC: M PLALAB 11:40
PROVIDERS: ATTEND Family Medicine
DX: E21.5 Disorder of parathyroid gland, unspecified (principal); E78.2 Mixed hyperlipidemia; D47.2 Monoclonal gammopathy; E53.8 Deficiency of other specified B group vitamins; D50.9 Iron deficiency anemia, unspecified; E55.9 Vitamin D deficiency, unspecified

== ENCOUNTER → 2025-05-09 | Outpatient (REF) | payer MEDICARE, OTHER ==
[2025-05-09 13:16] LABS: APPEARANCE, URINE HAZY (CLEAR); BACTERIA, URINE AUTO NEGATIVE (NEGATIVE); BILIRUBIN, URINE AUTO NEGATIVE (NEGATIVE); BLOOD, URINE BLOOD NEGATIVE (NEGATIVE); GLUCOSE, URINE (UA) AUTO NEGATIVE (NEGATIVE); KETONE, URINE AUTO NEGATIVE (NEGATIVE); LEUKOCYTE ESTERASE, URINE AUTO NEGATIVE (NEGATIVE); NITRITE, URINE AUTO NEGATIVE (NEGATIVE); PROTEIN, URINE AUTO NEGATIVE (NEGATIVE); RBC, URINE AUTO 1 /HPF (0-3); SPECIFIC GRAVITY URINE AUTO 1.023 (1.002-1.035); SQUAMOUS EPITHELIAL CELL UR AU 0 /HPF (0-6); UROBILINOGEN, URINE AUTO 0.2 mg/dL (0.0-2.0); WBC, URINE AUTO 0 /HPF (0-3)
== END ==
LOC: M SMT 12:43
PROVIDERS: ATTEND Nurse Practitioner Family
DX: R39.15 Urgency of urination (principal)

== ENCOUNTER 2025-05-11 13:52 | Outpatient (CLI) | payer MEDICARE, BC ==
[~2025-05-11] VITALS: Ht 177.8 cm; Wt 95.5 kg
[~2025-05-11 13:52] MED LIST changes: +ALBUTEROL SULFATE 2.5 MG/0.5 ML INH CONCENTRATE NEB SOLN INH PRN; +EPINEPHrine INJ 1 MG/ML 1ML AMP IM PRN; +diphenhydrAMINE 50 MG/ML VIAL IV PRN
[2025-05-11 14:00] VITALS: BP 121/57; O2SAT 95
[2025-05-11] MEDS: FERRIC CARBOXYMALTOSE 750 MG (VIAL MATE) IN 100ML NS IV ONE (14:13)
[2025-05-11 15:04] VITALS: BP 114/54; O2SAT 96
== END 2025-05-11 15:06 ==
LOC: M INFU 13:52
PROVIDERS: ATTEND Family Medicine
DX: D50.9 Iron deficiency anemia, unspecified (principal); Z91.041 Radiographic dye allergy status
CPT/HCPCS: 96365; J1439